=== PATIENT | female | born 2000 | race African-American/Black ===

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

== ENCOUNTER 2023-03-24 18:28 | Emergency (ER) | payer OTHER ==
--- OUTSIDE RECORDS SUMMARY | 2023-03-24 18:36 | XMS REPORT | Continuity of Care Document ---
:2000 Author Organization [facility] t Address [address] [place] [address] [address] [place] [address] Care Team Providers Name Role Phone Tono Lyles [place] Primary Care Physician CHARLINE BERNARDO Attending Clinician Unavailable MYESHA PIERRE Attending Clinician Unavailable TRIMYESHA MCCAIN Attending Clinician Unavailable 2, [facility] Attending Clinician Unavailable Doctor Unassigned, Gypsy Attending Clinician Unavailable Therese Smith MD Attending Clinician [phone] THERESE SMITH Attending Clinician Unavailable Pob, [facility] Main Attending Clinician Unavailable SHEA MILLAN Attending Clinician Unavailable Shea Millan MD Attending Clinician Kina Salmon Attending Clinician Unavailable CARLOS MANUEL TRIPLETT Attending Clinician Unavailable Ramón Terry PA-C Attending Clinician RAMÓN TERRY Attending Clinician Unavailable WING TUCKER Attending Clinician Unavailable CINDY ALVES III Attending Clinician Unavailable Only, Ang Db Test Attending Clinician Unavailable Jemima Murphy Attending Clinician JEMIMA RODRIGUEZ Attending Clinician Unavailable Charline Bernardo MD Attending Clinician Reggie Tiwari Attending Clinician REGGIE MANZANO Attending Clinician Unavailable Only, Vtc Test Attending Clinician Unavailable Joseph Boyd MD Attending Clinician JOSEPH BOYD Attending Clinician Unavailable Nurse, [facility] Attending Clinician Unavailable CHARLINE BERNARDO Admitting Clinician Unavailable Charline Bernardo MD Admitting Clinician Payers Payer Name Policy Type Policy Number Effective Date Expiration Date Eduardo haskins [facility] [id number] 2017 MEDICAID 00:00:00 Problems Condition Condition Condition Status Onset Resolution Last Treating Co mments Source Name Details Category Date Date Treatment Clinician Date Intertrigo Intertrigo Disease Active U nivers 6-22 ity of 00:: [place] [facility] Branch Menorrhagi Menorrhagi Disease Active 2021-06 U nivers a with a with 2-10 [place] Nexplanon Nexplanon Disease Active 2021-06 Uni vers insertion insertion 2-10 ity of 00:: [place] [facility] Branch BMI BMI Disease Active Univers 40.0-44.9, 40.0-44.9, 8-09 it y of adult adult 00:00: [place] [facility] Obesity Obesity Disease Active 2020-06 Univers (BMI (BMI 2-29 ity of 30-39.9) 30-39.9) 00:00: [place] [facility] Branch Macromasti Macromasti Disease Active Overview : Univers a a 7-29 Formattin ity of 00:00: g of this [place] note Medical might be Branch different from the original. Added automatic ally from request for surgery [id number] Nexplanon Nexplanon Disease Active Uni vers in place in place 3-09 ity of 00:00: [place] [address] Medical Branch Allergies, Adverse Reactions, Alerts Allergy Allergy Status Severity Reaction(s) Onset Inactive Treating Comm ents Source Name Type Date Date Clinician NO KNOWN Drug Active Univers ALLERGIE Class ity of S [facility] NO KNOWN Allergy Active [facility] Social History Social Habit Start Date Stop Date Quantity Comments Source Sexual orientation [facility]iver [facility] [place] [facility] [place] History SDOH University o f Alcohol Std Drinks [facility] History [facility] University o f Alcohol Binge [facility] al Branch Exposure to 2022-08-05 2022-08-15 Not sure [facility] SARS-CoV-2 (event) 00:00:00 07:23:00 [facility] Tobacco use and 2022-06-25 2022-06-25 Smokeless SHELBI Sanchez kes exposure 00:00:00 00:00:00 tobacco non-user [facility] Alcohol intake 2022-06-25 2022-06-25 Current drinker [facility] (finding) Alcohol Comment 2022-06-25 2022-06-25 socially SHELBI Sanchez kes 00:00:00 00:00:00 [facility] History of Social 2022-06-05 2022-06-05 Univers ity of function 00:00:00 00:00:00 [facility] History SDOH 2018-11-12 2018-11-12 1 [place] o f Alcohol Frequency 00:00:00 00:00:00 [facility] Sex Assigned At 2000 2002 SHELBI Oh 00:00:00 00:00:00 [facility] Smoking Status Start Date Stop Date Source Never smoked tobacco [facility] Medications Ordered Filled Start Stop Current Ordering Indication Dosage Frequency Signature Comments Components Source Medication Medication Date Date Medication? Clinician (SIG) Name Name nystatin Yes [id number] Apply to [facility] 100,000 6-22 area(s) 2 ity of unit/gram 00:00: (two) [place] powder 00 times Medical daily. Branch norethindro Yes [id number] 1{tbl} Take 1 Univers ne (ORTHO 6-22 tablet by ity o f MICRONOR) 00:00: [place] 0[place] 00 the Medical tablet morning. Branch nystatin Yes [id number] Apply to [facility] 100,000 6-22 area(s) 2 ity of unit/gram 00:00: (two) [place] powder 00 times Medical daily. Branch norethindro Yes [id number] 1{tbl} Take 1 Univers ne (ORTHO 6-22 tablet by ity o f MICRONOR) 00:00: [place] 0.[place] mg 00 the Medical tablet morning. Branch nystatin Yes [id number] Apply to [employer] 100,000 6-22 area(s) 2 ity of unit/gram 00:00: (two) [place] powder 00 times Medical daily. [place] norethindro Yes [id number] 1{tbl} Take 1 Univers ne (ORTHO 6-22 tablet by ity o f MICRONOR) 00:00: [place] 0.[place] mg 00 the Medical tablet morning. [place] etonogestre 2022- No [id number] 68mg Univers L 08-15 ity of (NEXPLANON) 14:45: 13:59 [place] implant 68 00 :00 Medical mg [place] etonogestre 2022- No [id number] 68mg 68 mg, Univers L 08-15 Subdermal, ity of (NEXPLANON) 14:45: 13:59 [place] :[place] dose, On Medic al mg Tue [place] 08/15/22 at 0945, Routine
Use approved by: [employer] etonogestre 2022- No [id number] 68mg Univers L 08-15 ity of (NEXPLANON) 14:45: 13:59 [place] implant 68 00 :00 Medical mg [place] etonogestre 2022- No [id number] 68mg 68 mg, Univers L 08-15 Subdermal, ity of (NEXPLANON) 14:45: 13:59 [place] :[place] dose, On Medic al mg Tue [place] 08/15/22 at 0945, Routine
Use approved by: [employer] etonogestre 2022- No [id number] 68mg Univers L 08-15 ity of (NEXPLANON) 14:45: 13:59 [place] implant 68 00 :00 Medical mg [place] etonogestre 2022- No [id number] 68mg 68 mg, Univers L 08-15 Subdermal, ity of (NEXPLANON) 14:45: 13:59 [place] 00 :[place] dose, On Medic al mg Tue [place] 08/15/22 at 0945, Routine
Use approved by: [employer] hydrOXYzine 2023-0 Yes 10mg Take 1 Univ ers 10 mg 3-14 tablet by ity of tablet 08:42: mouth. [address] Branch hydrOXYzine 2023-0 Yes 10mg Take 1 Univ ers 10 mg 3-14 tablet by ity of tablet 08:42: mouth. [address] hydrOXYzine 2023-0 Yes 10mg Take 1 Univ ers 10 mg 3-14 tablet by ity of tablet 08:42: mouth. [address] Branch hydrOXYzine 2023-0 Yes 10mg Take 1 Univ ers 10 mg 3-14 tablet by ity of tablet 08:42: mouth. [address] hydrOXYzine 2023-0 Yes 10mg Take 1 Univ ers 10 mg 3-14 tablet by ity of tablet 08:42: mouth. [address] hydrOXYzine 2023-0 Yes 10mg Take 1 Univ ers 10 mg 3-14 tablet by ity of tablet 08:42: mouth. [address] hydrOXYzine 2023-0 Yes 10mg Take 1 Univ ers 10 mg 3-14 tablet by ity of tablet 08:42: mouth. [address] hydrOXYzine 2023-0 Yes 10mg Take 1 Univ ers 10 mg 3-14 tablet by ity of tablet 08:42: mouth. [address] hydrOXYzine 2023-0 Yes 10mg Take 1 Univ ers 10 mg 3-14 tablet by ity of tablet 08:42: mouth. [address] hydrOXYzine 2023-0 Yes 10mg Take 1 Univ ers 10 mg 3-14 tablet by ity of tablet 08:42: mouth. [address] hydrOXYzine 2023-0 Yes 10mg Take 1 Univ ers 10 mg 3-14 tablet by ity of tablet 08:42: mouth. [address] hydrOXYzine 2023-0 Yes 10mg Take 1 Univ ers 10 mg 3-14 tablet by ity of tablet 08:42: mouth. [address] Branch omeprazole 2023-0 Yes 20mg Take 1 Unive rs 20 mg 3-14 capsule by ity of capsule 08:24: mouth in [place] [address] the Medical morning. Branch omeprazole 2023-0 Yes 20mg Take 1 Unive rs 20 mg 3-14 capsule by ity of capsule 08:24: mouth in [place] [address] the Medical morning. Branch omeprazole 2023-0 Yes 20mg Take 1 Unive rs 20 mg 3-14 capsule by ity of capsule 08:24: mouth in [place] [address] the Medical morning. Branch omeprazole 2023-0 Yes 20mg Take 1 Unive rs 20 mg 3-14 capsule by ity of capsule 08:24: mouth in [place] [address] the Medical morning. Branch omeprazole 2023-0 Yes 20mg Take 1 Unive rs 20 mg 3-14 capsule by ity of capsule 08:24: mouth in [place] [address] the Medical morning. Branch omeprazole 2023-0 Yes 20mg Take 1 Unive rs 20 mg 3-14 capsule by ity of capsule 08:24: mouth in [place] [address] the Medical morning. Branch omeprazole 2023-0 Yes 20mg Take 1 Unive rs 20 mg 3-14 capsule by ity of capsule 08:24: mouth in [place] [address] the Medical morning. Branch omeprazole 2023-0 Yes 20mg Take 1 Unive rs 20 mg 3-14 capsule by ity of capsule 08:24: mouth in [place] [address] the Medical morning. Branch omeprazole 2023-0 Yes 20mg Take 1 Unive rs 20 mg 3-14 capsule by ity of capsule 08:24: mouth in [place] [address] the Medical morning. Branch omeprazole 2023-0 Yes 20mg Take 1 Unive rs 20 mg 3-14 capsule by ity of capsule 08:24: mouth in [place] [address] the Medical morning. Branch omeprazole 2023-0 Yes 20mg Take 1 Unive rs 20 mg 3-14 capsule by ity of capsule 08:24: mouth in [place] [address] the Medical morning. Branch omeprazole 2023-0 Yes 20mg Take 1 Unive rs 20 mg 3-14 capsule by ity of capsule 08:24: mouth in [place] [address] the Medical morning. Branch omeprazole 2023-0 Yes 20mg Take 1 Unive rs 20 mg 3-14 capsule by ity of capsule 08:24: mouth in [place] [address] the Medical morning. Branch omeprazole 2023-0 Yes 20mg Take 1 Unive rs 20 mg 3-14 capsule by ity of capsule 08:24: mouth in [place] [address] the Medical morning. Branch omeprazole 2023-0 Yes 20mg Take 1 Unive rs 20 mg 3-14 capsule by ity of capsule 08:24: mouth in [place] [address] the Medical morning. Branch omeprazole 2023-0 Yes 20mg Take 1 Unive rs 20 mg 3-14 capsule by ity of capsule 08:24: mouth in [place] 31 the Medical morning. [place] omeprazole 2022-0 Yes 20mg Take 1 Unive rs 20 mg 3-14 capsule by ity of capsule 08:24: mouth in [place] 31 the Medical morning. [place] norethindro 0 Yes [id number] 1{tbl} Take 1 Univers ne (ORTHO 3-14 tablet by ity o f MICRONOR) 00:00: [place] 0[place] mg 00 the Medical tablet morning. Branch norethindro 0 Yes [id number] 1{tbl} Take 1 Univers ne (ORTHO 3-14 tablet by ity o f MICRONOR) 00:00: [place] 0.[place] mg 00 the Medical tablet morning. Branch norethindro Yes [id number] 1{tbl} Take 1 Univers ne (ORTHO 3-14 tablet by ity o f MICRONOR) 00:00: [place] 0.[place] mg 00 the Medical tablet morning. Branch norethindro Yes [id number] 1{tbl} Take 1 Univers ne (ORTHO 3-14 tablet by ity o f MICRONOR) 00:00: [place] 0.[place] mg 00 the Medical tablet morning. Branch norethindro Yes [id number] 1{tbl} Take 1 Univers ne (ORTHO 3-14 tablet by ity o f MICRONOR) 00:00: [place] 0.[place] mg 00 the Medical tablet morning. Branch norethindro Yes [id number] 1{tbl} Take 1 Univers ne (ORTHO 3-14 tablet by ity o f MICRONOR) 00:00: [place] 0.[place] mg 00 the Medical tablet morning. Branch norethindro 2022- No [id number] 1{tbl} Take 1 Univers ne (ORTHO 3-14 06-22 tablet by ity of MICRONOR) 00:00: 00:00 mouth in [place] 0.35 mg 00 :00 the Medical tablet morning. Branch norethindro 2022- No [id number] 1{tbl} Take 1 Univers ne (ORTHO 3-14 06-22 tablet by ity of MICRONOR) 00:00: 00:00 mouth [place] 0.35 mg 00 :00 the Medical tablet morning. Branch hydrOXYzine Yes 10mg Take [address] (ATARAX) 10 06-25 by mouth [facility] MG tablet 11:05: every 6 Medic al 46 (six) Center hours as needed for Anxiety. ondansetron 2022- No 4mg Take [address] [facility] [facility] (ZOFRAN-ODT 06-25 tablet (4 Judith kes ) 4 MG 00:00: 23:59 mg total) Medic al disintegrat 00 :00 by mouth Cent er ing tablet every 8 (eight) hours as needed for Nausea for up to 2 days. metroNIDAZO 2022- No [id number] 500mg Take 1 Univers LE 500 mg 06-06 tablet by ity of tablet 00:00: 05:59 mouth [place] 00 :00 every 12 Medical (twelve) Branch hours for 7 days. metroNIDAZO No [id number] 500mg Take 1 Univers LE 500 mg 06-06 tablet by ity of tablet 00:00: 05:59 mouth [place] 00 :00 every 12 Medical (twelve) Branch hours for 7 days. omeprazole 2021-06 Yes 20mg Take 20 mg U nivers 20 mg 2-09 by mouth ity of capsule 14:41: daily. [address] omeprazole 2021-06 Yes 20mg Take 20 mg U nivers 20 mg 2-09 by mouth ity of capsule 14:41: daily. [address] omeprazole 2021-06 Yes 20mg Take 20 mg U nivers 20 mg 2-09 by mouth ity of capsule 14:41: daily. [address] omeprazole 2021-06 Yes 20mg Take 20 mg U nivers 20 mg 2-09 by mouth ity of capsule 14:41: daily. [address] omeprazole 2021-06 Yes 20mg Take 20 mg U nivers 20 mg 2-09 by mouth ity of capsule 14:41: daily. [address] omeprazole 2021-06 Yes 20mg Take 20 mg U nivers 20 mg 2-09 by mouth ity of capsule 14:41: daily. [address] omeprazole 2021-06 Yes 20mg Take 20 mg U nivers 20 mg 2-09 by mouth ity of capsule 14:41: daily. [address] Branch norethindro 2021-06 Yes [id number] 1{tbl} Take 1 Univers ne (ORTHO 2-09 tablet by ity o f MICRONOR) 00:00: [place] 0.[place] mg 00 the Medical tablet morning. Branch norethindro 2021-06 Yes [id number] 1{tbl} Take 1 Univers ne (ORTHO 2-09 tablet by ity o f MICRONOR) 00:00: [place] 0.[place] mg 00 the Medical tablet morning. Branch norethindro 2021-06 Yes [id number] 1{tbl} Take 1 Univers ne (ORTHO 2-09 tablet by ity o f MICRONOR) 00:00: mouth [place] 0.[place] mg 00 the Medical tablet morning. Branch norethindro 2021-06 Yes [id number] 1{tbl} Take 1 Univers ne (ORTHO 2-09 tablet by ity o f MICRONOR) 00:00: [place] 0.[place] mg 00 the Medical tablet morning. Branch norethindro 2021-06 Yes [id number] 1{tbl} Take 1 Univers ne (ORTHO 2-09 tablet by ity o f MICRONOR) 00:00: mouth [place] 0.35 mg 00 the Medical tablet morning. Branch norethindro 2021-06 Yes [id number] 1{tbl} Take 1 Univers ne (ORTHO 2-09 tablet by ity o f MICRONOR) 00:00: mouth [place] 0.35 mg 00 the Medical tablet morning. Branch norethindro 2021-06 Yes [id number] 1{tbl} Take 1 Univers ne (ORTHO 2-09 tablet by ity o f MICRONOR) 00:00: mouth [place] 0.35 mg 00 the Medical tablet morning. Branch norethindro 2021-06 Yes [id number] 1{tbl} Take 1 Univers ne (ORTHO 2-09 tablet by ity o f MICRONOR) 00:00: mouth [place] 0.35 mg 00 the Medical tablet morning. Branch norethindro 2021-06 Yes [id number] 1{tbl} Take 1 Univers ne (ORTHO 2-09 tablet by ity o f MICRONOR) 00:00: [place] 0.[place] mg 00 the Medical tablet morning. Branch norethindro 2021-06- No [id number] 1{tbl} Take 1 Univers ne (ORTHO 2-09 03-14 tablet by ity of MICRONOR) 00:00: 00:00 mouth in [place] 0.35 mg 00 :00 the Medical tablet morning. Branch norethindro 2021-06 Yes TAKE 1 Univ ers ne 5 mg 2-08 TABLET BY ity of tablet 00:00: MOUTH [place] 00 THREE Medical TIMES Branch DAILY FOR 10 DAYS norethindro 2021-06 Yes TAKE 1 Univ ers ne 5 mg 2-08 TABLET BY ity of tablet 00:00: MOUTH THREE Medical TIMES Branch DAILY FOR 10 DAYS norethindro 2021-06 Yes TAKE 1 Univ ers ne 5 mg 2-08 TABLET BY ity of tablet 00:00: MOUTH THREE Medical TIMES Branch DAILY FOR 10 DAYS norethindro 2021-06 Yes TAKE 1 Univ ers ne 5 mg 2-08 TABLET BY ity of tablet 00:00: MOUTH THREE Medical TIMES Branch DAILY FOR 10 DAYS norethindro 2021-06 Yes TAKE 1 Univ ers ne 5 mg 2-08 TABLET BY ity of tablet 00:00: MOUTH THREE Medical TIMES Branch DAILY FOR 10 DAYS norethindro 2021-06 Yes TAKE 1 Univ ers ne 5 mg 2-08 TABLET BY ity of tablet 00:00: MOUTH THREE Medical TIMES Branch DAILY FOR 10 DAYS norethindro 2021-06 Yes TAKE 1 Univ ers ne 5 mg 2-08 TABLET BY ity of tablet 00:00: MOUTH [place] THREE Medical TIMES Branch DAILY FOR 10 DAYS norethindro 2021-06 Yes TAKE 1 Univ ers ne 5 mg 2-08 TABLET BY ity of tablet 00:00: MOUTH [place] THREE Medical TIMES Branch DAILY FOR 10 DAYS norethindro 2021-06 Yes TAKE 1 Univ ers ne 5 mg 2-08 TABLET BY ity of tablet 00:00: MOUTH [place] 00 THREE Medical TIMES Branch DAILY FOR 10 DAYS norethindro 2021-06 Yes TAKE 1 Univ ers ne 5 mg 2-08 TABLET BY ity of tablet 00:00: MOUTH [place] 00 THREE Medical TIMES Branch DAILY FOR 10 DAYS norethindro 2021-06 Yes TAKE 1 Univ ers ne 5 mg 2-08 TABLET BY ity of tablet 00:00: MOUTH [place] THREE Medical TIMES Branch DAILY FOR 10 DAYS norethindro 2021-06 Yes TAKE 1 Univ ers ne 5 mg 2-08 TABLET BY ity of tablet 00:00: MOUTH [place] THREE Medical TIMES Branch DAILY FOR 10 DAYS norethindro 2021-06 Yes TAKE 1 Univ ers ne 5 mg 2-08 TABLET BY ity of tablet 00:00: MOUTH [place] THREE Medical TIMES Branch DAILY FOR 10 DAYS norethindro 2021-06 Yes TAKE 1 Univ ers ne 5 mg 2-08 TABLET BY ity of tablet 00:00: MOUTH [place] [facility] Medical TIMES Branch DAILY FOR 10 DAYS norethindro 2021-06 Yes TAKE 1 Univ ers ne 5 mg 2-08 TABLET BY ity of tablet 00:00: MOUTH [address] Medical TIMES [place] DAILY FOR 10 DAYS sertraline 2021-06 Yes 50mg QD Take [address] (ZOLOFT) 50 1-11 by mouth [facility] MG tablet 00:00: daily. Medica [address] SERTraline 2021-06 Yes 50mg Take 1 Unive rs 50 mg 1-11 tablet by ity of tablet 00:00: mouth. [address] SERTraline 2021-06 Yes 50mg Take 1 Unive rs 50 mg 1-11 tablet by ity of tablet 00:00: mouth. [address] SERTraline 2021-06 Yes 50mg Take 1 Unive rs 50 mg 1-11 tablet by ity of tablet 00:00: mouth. [place] [facility] SERTraline 2021-06 Yes 50mg Take 1 Unive rs 50 mg 1-11 tablet by ity of tablet 00:00: mouth. [place] [facility] SERTraline 2021-06 Yes 50mg Take 1 Unive rs 50 mg 1-11 tablet by ity of tablet 00:00: mouth. [address] SERTraline 2021-06 Yes 50mg Take 1 Unive rs 50 mg 1-11 tablet by ity of tablet 00:00: mouth. [address] SERTraline 2021-06 Yes 50mg Take 1 Unive rs 50 mg 1-11 tablet by ity of tablet 00:00: mouth. [place] 00 Medical Branch SERTraline 2021-06 Yes 50mg Take 1 Unive rs 50 mg 1-11 tablet by ity of tablet 00:00: mouth. Medical Branch SERTraline 2021-06 Yes 50mg Take 1 Unive rs 50 mg 1-11 tablet by ity of tablet 00:00: mouth. Medical Branch SERTraline 2021-06 Yes 50mg Take 1 Unive rs 50 mg 1-11 tablet by ity of tablet 00:00: mouth. Medical Branch SERTraline 2021-06 Yes 50mg Take 1 Unive rs 50 mg 1-11 tablet by ity of tablet 00:00: mouth. [place] [facility] SERTraline 2021-06 Yes 50mg Take 1 Unive rs 50 mg 1-11 tablet by ity of tablet 00:00: mouth. [place] [facility] metroNIDAZO 0 Yes [id number] 500mg Take 1 Univers LE 500 mg 8-10 tablet by ity o f tablet 00:00: mouth [place] 00 every 12 Medical (twelve) Branch hours. metroNIDAZO 0 Yes [id number] 500mg Take 1 Univers LE 500 mg 8-10 tablet by ity o f tablet 00:00: mouth [place] 00 every 12 Medical (twelve) Branch hours. metroNIDAZO 2021-0 Yes [id number] 500mg Take 1 Univers LE 500 mg 8-10 tablet by ity o f tablet 00:00: mouth [place] 00 every 12 Medical (twelve) Branch hours. metroNIDAZO 2021-0 Yes [id number] 500mg Take 1 Univers LE 500 mg 8-10 tablet by ity o f tablet 00:00: mouth [place] 00 every 12 Medical (twelve) Branch hours. metroNIDAZO 2021-0 Yes [id number] 500mg Take 1 Univers LE 500 mg 8-10 tablet by ity o f tablet 00:00: mouth [place] 00 every 12 Medical (twelve) Branch hours. metroNIDAZO 2021-0 Yes [id number] 500mg Take 1 Univers LE 500 mg 8-10 tablet by ity o f tablet 00:00: mouth [place] 00 every 12 Medical (twelve) Branch hours. metroNIDAZO 2021-0 Yes [id number] 500mg Take 1 Univers LE 500 mg 8-10 tablet by ity o f tablet 00:00: mouth [place] 00 every 12 Medical (twelve) Branch hours. metroNIDAZO 2021-0 Yes [id number] 500mg Take 1 Univers LE 500 mg 8-10 tablet by ity o f tablet 00:00: mouth [place] 00 every 12 Medical (twelve) Branch hours. metroNIDAZO 2021-0 Yes [id number] 500mg Take 1 Univers LE 500 mg 8-10 tablet by ity o f tablet 00:00: mouth [place] 00 every 12 Medical (twelve) Branch hours. metroNIDAZO 2021-0 Yes [id number] 500mg Take 1 Univers LE 500 mg 8-10 tablet by ity o f tablet 00:00: mouth [place] 00 every 12 Medical (twelve) Branch hours. metroNIDAZO 2021-0 Yes [id number] 500mg Take 1 Univers LE 500 mg 8-10 tablet by ity o f tablet 00:00: mouth [place] 00 every 12 Medical (twelve) Branch hours. metroNIDAZO 2021-0 Yes [id number] 500mg Take 1 Univers LE 500 mg 8-10 tablet by ity o f tablet 00:00: mouth [place] 00 every 12 Medical (twelve) Branch hours. metroNIDAZO 2021-0 Yes [id number] 500mg Take 1 Univers LE 500 mg 8-10 tablet by ity o f tablet 00:00: mouth [place] 00 every 12 Medical (twelve) Branch hours. metroNIDAZO 2021-0 Yes [id number] 500mg Take 1 Univers LE 500 mg 8-10 tablet by ity o f tablet 00:00: mouth [place] 00 every 12 Medical (twelve) Branch hours. metroNIDAZO 2021-0 Yes [id number] 500mg Take 1 Univers LE 500 mg 8-10 tablet by ity o f tablet 00:00: mouth [place] 00 every 12 Medical (twelve) Branch hours. metroNIDAZO 2021-0 Yes [id number] 500mg Take 1 Univers LE 500 mg 8-10 tablet by ity o f tablet 00:00: mouth [place] 00 every 12 Medical (twelve) Branch hours. metroNIDAZO 2-0 Yes [id number] 500mg Take 1 Univers LE 500 mg 8-10 tablet by ity o f tablet 00:00: mouth [place] 00 every 12 Medical (twelve) Branch hours. metroNIDAZO 2-0 Yes [id number] 500mg Take 1 Univers LE 500 mg 8-10 tablet by ity o f tablet 00:00: mouth [place] 00 every 12 Medical (twelve) Branch hours. metroNIDAZO 2022-0 Yes [id number] 500mg Take 1 Univers LE 500 mg 8-10 tablet by ity o f tablet 00:00: mouth [place] 00 every 12 Medical (twelve) Branch hours. metroNIDAZO 2022-0 Yes [id number] 500mg Take 1 Univers LE 500 mg 8-10 tablet by ity o f tablet 00:00: mouth [place] 00 every 12 Medical (twelve) Branch hours. metroNIDAZO 2022-0 Yes [id number] 500mg Take 1 Univers LE 500 mg 8-10 tablet by ity o f tablet 00:00: mouth [place] 00 every 12 Medical (twelve) Branch hours. metroNIDAZO 2022-0 Yes [id number] 500mg Take 1 Univers LE 500 mg 8-10 tablet by ity o f tablet 00:00: mouth [place] 00 every 12 Medical (twelve) Branch hours. metroNIDAZO 2022-0 Yes [id number] 500mg Take 1 Univers LE 500 mg 8-10 tablet by ity o f tablet 00:00: mouth [place] 00 every 12 Medical (twelve) Branch hours. omeprazole 2022-0 Yes 20mg Take 20 mg U nivers 20 mg 8-09 by mouth ity of capsule 11:04: daily. [address] omeprazole 2022-0 Yes 20mg Take 20 mg U nivers 20 mg 8-09 by mouth ity of capsule 11:04: daily. [address] omeprazole 2022-0 Yes 20mg Take 20 mg U nivers 20 mg 8-09 by mouth ity of capsule 11:04: daily. [address] Branch nystatin 2022-0 Yes [id number] Apply to U nivers 100,000 8-09 area(s) 2 ity of unit/gram 00:00: (two) [place] powder 00 times Medical daily. Branch nystatin 2022-0 Yes [id number] Apply to U nivers 100,000 8-09 area(s) 2 ity of unit/gram 00:00: (two) [place] powder 00 times Medical daily. Branch nystatin 2022-0 Yes [id number] Apply to U nivers 100,000 8-09 area(s) 2 ity of unit/gram 00:00: (two) [place] powder 00 times Medical daily. Branch nystatin 2022-0 Yes [id number] Apply to U nivers 100,000 8-09 area(s) 2 ity of unit/gram 00:00: (two) [place] powder 00 times Medical daily. Branch nystatin 2022-0 Yes [id number] Apply to U nivers 100,000 8-09 area(s) 2 ity of unit/gram 00:00: (two) [place] powder 00 times Medical daily. Branch nystatin 2022-0 Yes [id number] Apply to U nivers 100,000 8-09 area(s) 2 ity of unit/gram 00:00: (two) [place] powder 00 times Medical daily. Branch nystatin 2022-0 Yes [id number] Apply to U nivers 100,000 8-09 area(s) 2 ity of unit/gram 00:00: (two) [place] powder 00 times Medical daily. Branch nystatin 2022-0 Yes [id number] Apply to U nivers 100,000 8-09 area(s) 2 ity of unit/gram 00:00: (two) [place] powder 00 times Medical daily. Branch nystatin 2022-0 Yes [id number] Apply to U nivers 100,000 8-09 area(s) 2 ity of unit/gram 00:00: (two) [place] powder 00 times Medical daily. Branch nystatin 2022-0 Yes [id number] Apply to U nivers 100,000 8-09 area(s) 2 ity of unit/gram 00:00: (two) [place] powder 00 times Medical daily. Branch nystatin 2022-0 Yes [id number] Apply to U nivers 100,000 8-09 area(s) 2 ity of unit/gram 00:00: (two) [place] powder 00 times Medical daily. Branch nystatin 2022-0 Yes [id number] Apply to U nivers 100,000 8-09 area(s) 2 ity of unit/gram 00:00: (two) [place] powder 00 times Medical daily. Branch nystatin 2022-0 Yes [id number] Apply to U nivers 100,000 8-09 area(s) 2 ity of unit/gram 00:00: (two) [place] powder 00 times Medical daily. Branch nystatin 2022-0 Yes [id number] Apply to U nivers 100,000 8-09 area(s) 2 ity of unit/gram 00:00: (two) [place] powder 00 times Medical daily. Branch nystatin 2022-0 Yes [id number] Apply to U nivers 100,000 8-09 area(s) 2 ity of unit/gram 00:00: (two) [place] powder 00 times Medical daily. Branch nystatin 2022-0 Yes [id number] Apply to U nivers 100,000 8-09 area(s) 2 ity of unit/gram 00:00: (two) [place] powder 00 times Medical daily. Branch nystatin 2022-0 Yes [id number] Apply to U nivers 100,000 8-09 area(s) 2 ity of unit/gram 00:00: (two) [place] powder 00 times Medical daily. Branch nystatin 2021-0 Yes [id number] Apply to U nivers 100,000 8-09 area(s) 2 ity of unit/gram 00:00: (two) [place] powder 00 times Medical daily. Branch nystatin 2021-0 2023- No [id number] Apply to Univers 100,000 8-09 06-22 area(s) 2 ity of unit/gram 00:00: 00:00 (two) [place] powder 00 :00 times Medical daily. Branch nystatin 2021-0 2023- No [id number] Apply to Univers 100,000 8-09 06-22 area(s) 2 ity of unit/gram 00:00: 00:00 (two) [place] powder 00 :00 times Medical daily. Branch nystatin 2021-0 2022- No [id number] Apply to Univers 100,000 6-14 08-09 area(s) 2 ity of unit/gram 00:00: 00:00 (two) [place] powder 00 :00 times Medical daily. Branch SERTraline 2020-06 Yes Univers 50 mg 2-01 ity of tablet 00:00: Medical Branch hydrOXYzine 2020-06 Yes Univer s 25 mg 2-01 ity of tablet 00:00: Medical Branch SERTraline 2020-06 Yes Univers 50 mg 2-01 ity of tablet 00:00: [facility] Branch hydrOXYzine 2020-06 Yes Univer s 25 mg 2-01 ity of tablet 00:00: Medical Branch SERTraline 2020-06 Yes Univers 50 mg 2-01 ity of tablet 00:00: [place] [facility] hydrOXYzine 2020-06 Yes Univer s 25 mg 2-01 ity of tablet 00:00: [place] [facility] Branch SERTraline 2020-06 Yes Univers 50 mg 2-01 ity of tablet 00:00: [address] hydrOXYzine 2020-06 Yes Univer s 25 mg 2-01 ity of tablet 00:00: [place] [facility] Branch SERTraline 2020-06 Yes Univers 50 mg 2-01 ity of tablet 00:00: [place] [facility] hydrOXYzine 2020-06 Yes Univer s 25 mg 2-01 ity of tablet 00:00: [address] SERTraline 2020-06 Yes Univers 50 mg 2-01 ity of tablet 00:00: [address] hydrOXYzine 2020-06 Yes Univer s 25 mg 2-01 ity of tablet 00:00: [address] SERTraline 2020-06 Yes Univers 50 mg 2-01 ity of tablet 00:00: [address] hydrOXYzine 2020-06 Yes Univer s 25 mg 2-01 ity of tablet 00:00: [address] SERTraline 2020-06 Yes Univers 50 mg 2-01 ity of tablet 00:00: [address] hydrOXYzine 2020-06 Yes Univer s 25 mg 2-01 ity of tablet 00:00: [address] SERTraline 2020-06 Yes Univers 50 mg 2-01 ity of tablet 00:00: [address] hydrOXYzine 2020-06 Yes Univer s 25 mg 2-01 ity of tablet 00:00: [address] SERTraline 2020-06 Yes Univers 50 mg 2-01 ity of tablet 00:00: [address] hydrOXYzine 2020-06 Yes Univer s 25 mg 2-01 ity of tablet 00:00: [address] SERTraline 2020-06 Yes Univers 50 mg 2-01 ity of tablet 00:00: [address] hydrOXYzine 2020-06 Yes Univer s 25 mg 2-01 ity of tablet 00:00: [address] SERTraline 2020-06 Yes Univers 50 mg 2-01 ity of tablet 00:00: [address] hydrOXYzine 2020-06 Yes Univer s 25 mg 2-01 ity of tablet 00:00: [place] [facility] SERTraline 2020-06 Yes Univers 50 mg 2-01 ity of tablet 00:00: [place] [facility] hydrOXYzine 2020-06 Yes Univer s 25 mg 2-01 ity of tablet 00:00: [address] SERTraline 2020-06 Yes Univers 50 mg 2-01 ity of tablet 00:00: [place] [facility] hydrOXYzine 2020-06 Yes Univer s 25 mg 2-01 ity of tablet 00:00: [address] SERTraline 2020-06 Yes Univers 50 mg 2-01 ity of tablet 00:00: [address] hydrOXYzine 2020-06 Yes Univer s 25 mg 2-01 ity of tablet 00:00: [address] SERTraline 2020-06 Yes Univers 50 mg 2-01 ity of tablet 00:00: [address] hydrOXYzine 2020-06 Yes Univer s 25 mg 2-01 ity of tablet 00:00: [address] SERTraline 2020-06 Yes Univers 50 mg 2-01 ity of tablet 00:00: [address] hydrOXYzine 2020-06 Yes Univer s 25 mg 2-01 ity of tablet 00:00: [address] SERTraline 2020-06 Yes Univers 50 mg 2-01 ity of tablet 00:00: [address] hydrOXYzine 2020-06 Yes Univer s 25 mg 2-01 ity of tablet 00:00: [address] SERTraline 2020-06 Yes Univers 50 mg 2-01 ity of tablet 00:00: [address] hydrOXYzine 2020-06 Yes Univer s 25 mg 2-01 ity of tablet 00:00: [address] SERTraline 2020-06 Yes Univers 50 mg 2-01 ity of tablet 00:00: [address] hydrOXYzine 2020-06 Yes Univer s 25 mg 2-01 ity of tablet 00:00: [address] SERTraline 2020-06 Yes Univers 50 mg 2-01 ity of tablet 00:00: [address] hydrOXYzine 2020-06 Yes Univer s 25 mg 2-01 ity of tablet 00:00: [address] SERTraline 2020-06 Yes Univers 50 mg 2-01 ity of tablet 00:00: [place] [facility] hydrOXYzine 2020-06 Yes Univer s 25 mg 2-01 ity of tablet 00:00: [address] SERTraline 2020-06 Yes Univers 50 mg 2-01 ity of tablet 00:00: [address] hydrOXYzine 2020-06 Yes Univer s 25 mg 2-01 ity of tablet 00:00: [place] [facility] SERTraline 2020-06 Yes Univers 50 mg 2-01 ity of tablet 00:00: [address] hydrOXYzine 2020-06 Yes Univer s 25 mg 2-01 ity of tablet 00:00: [address] SERTraline 2020-06 Yes Univers 50 mg 2-01 ity of tablet 00:00: [address] hydrOXYzine 2020-06 Yes Univer s 25 mg 2-01 ity of tablet 00:00: [address] Immunizations Ordered Immunization Filled Date Status Comments Sour ce Name Immunization Name Influenza Virus 2021-03-04 Completed Universit y of Vaccine 00:00:00 [facility] Influenza Virus 2021-03-04 Completed Universit y of Vaccine 00:00:00 [facility] Influenza Virus 2021-03-04 Completed Universit y of Vaccine 00:00:00 [facility] Influenza Virus 2021-03-04 Completed Universit y of Vaccine 00:00:00 [facility] Influenza Virus 2021-03-04 Completed Universit y of Vaccine 00:00:00 [facility] Influenza Virus 2021-03-04 Completed Universit y of Vaccine 00:00:00 [facility] Influenza Virus 2021-03-04 Completed Universit y of Vaccine 00:00:00 [facility] Influenza Virus 2021-03-04 Completed Universit y of Vaccine 00:00:00 [facility] Influenza Virus 2021-03-04 Completed Universit y of Vaccine 00:00:00 [facility] Influenza Virus 2021-03-04 Completed Universit y of Vaccine 00:00:00 [facility] Influenza Virus 2021-03-04 Completed Universit y of Vaccine 00:00:00 [facility] Influenza Virus 2021-03-04 Completed Universit y of Vaccine 00:00:00 [facility] Influenza Virus 2021-03-04 Completed Universit y of Vaccine 00:00:00 [facility] Influenza Virus 2021-03-04 Completed Universit y of Vaccine 00:00:00 [facility] Influenza Virus 2021-03-04 Completed Universit y of Vaccine 00:00:00 [facility] SARS-COV-2 COVID-19 2020-10-27 Completed Unive rsity of VACCINE - (MODERNA) 00:00:00 [facility] SARS-COV-2 COVID-19 2020-10-27 Completed Unive rsity of VACCINE - (MODERNA) 00:00:00 [facility] SARS-COV-2 COVID-19 2020-10-27 Completed Unive rsity of VACCINE - (MODERNA) 00:00:00 [facility] SARS-COV-2 COVID-19 2020-10-27 Completed Unive rsity of VACCINE - (MODERNA) 00:00:00 [facility] SARS-COV-2 COVID-19 2020-10-27 Completed Unive rsity of VACCINE - (MODERNA) 00:00:00 [facility] SARS-COV-2 COVID-19 2020-10-27 Completed Unive rsity of VACCINE - (MODERNA) 00:00:00 [facility] SARS-COV-2 COVID-19 2020-10-27 Completed Unive rsity of VACCINE - (MODERNA) 00:00:00 [facility] SARS-COV-2 COVID-19 2020-10-27 Completed Unive rsity of VACCINE - (MODERNA) 00:00:00 [facility] SARS-COV-2 COVID-19 2020-10-27 Completed Unive rsity of VACCINE - (MODERNA) 00:00:00 [facility] SARS-COV-2 COVID-19 2020-10-27 Completed Unive rsity of VACCINE - (MODERNA) 00:00:00 [facility] SARS-COV-2 COVID-19 2020-10-27 Completed Unive rsity of VACCINE - (MODERNA) 00:00:00 [facility] SARS-COV-2 COVID-19 2020-10-27 Completed Unive rsity of VACCINE - (MODERNA) 00:00:00 [place] [facility] SARS-COV-2 COVID-19 2020-10-27 Completed Unive rsity of VACCINE - (MODERNA) 00:00:00 [facility] SARS-COV-2 COVID-19 2020-10-27 Completed Unive rsity of VACCINE - (MODERNA) 00:00:00 [facility] SARS-COV-2 COVID-19 2020-10-27 Completed Unive rsity of VACCINE - (MODERNA) 00:00:00 [facility] SARS-COV-2 COVID-19 2020-09-29 Completed Unive rsity of VACCINE - (MODERNA) 00:00:00 [facility] SARS-COV-2 COVID-19 2020-09-29 Completed Unive rsity of VACCINE - (MODERNA) 00:00:00 [facility] SARS-COV-2 COVID-19 2020-09-29 Completed Unive rsity of VACCINE - (MODERNA) 00:00:00 [facility] SARS-COV-2 COVID-19 2020-09-29 Completed Unive rsity of VACCINE - (MODERNA) 00:00:00 [facility] SARS-COV-2 COVID-19 2020-09-29 Completed Unive rsity of VACCINE - (MODERNA) 00:00:00 [facility] SARS-COV-2 COVID-19 2020-09-29 Completed Unive rsity of VACCINE - (MODERNA) 00:00:00 [facility] SARS-COV-2 COVID-19 2020-09-29 Completed Unive rsity of VACCINE - (MODERNA) 00:00:00 [facility] SARS-COV-2 COVID-19 2020-09-29 Completed Unive rsity of VACCINE - (MODERNA) 00:00:00 [facility] SARS-COV-2 COVID-19 2020-09-29 Completed Unive rsity of VACCINE - (MODERNA) 00:00:00 [facility] SARS-COV-2 COVID-19 2020-09-29 Completed Unive rsity of VACCINE - (MODERNA) 00:00:00 [facility] SARS-COV-2 COVID-19 2020-09-29 Completed Unive rsity of VACCINE - (MODERNA) 00:00:00 [facility] SARS-COV-2 COVID-19 2020-09-29 Completed Unive rsity of VACCINE - (MODERNA) 00:00:00 [facility] SARS-COV-2 COVID-19 2020-09-29 Completed Unive rsity of VACCINE - (MODERNA) 00:00:00 [facility] SARS-COV-2 COVID-19 2020-09-29 Completed Unive rsity of VACCINE - (MODERNA) 00:00:00 [facility] SARS-COV-2 COVID-19 2020-09-29 Completed Unive rsity of VACCINE - (MODERNA) 00:00:00 [facility] HPV 2015-01-18 Completed University of 00:00:00 [facility] Meningococcal 2015-01-18 Completed University of Polysaccharide 00:00:00 [place] [facility] (groups A, C, Y and Branc h W-135) conjugate vaccine (MCV4P) TDAP 2015-01-18 Completed University of 00:00:00 [facility] HPV 2015-01-18 Completed University of 00:00:00 [facility] Meningococcal 2015-01-18 Completed University of Polysaccharide 00:00:00 [place] [facility] (groups A, C, Y and Branc h W-135) conjugate vaccine (MCV4P) TDAP 2015-01-18 Completed University of 00:00:00 [facility] HPV 2015-01-18 Completed University of 00:00:00 [facility] Meningococcal 2015-01-18 Completed University of Polysaccharide 00:00:00 [place] [facility] (groups A, C, Y and Branc h W-135) conjugate vaccine (MCV4P) TDAP 2015-01-18 Completed University of 00:00:00 [facility] HPV 2015-01-18 Completed University of 00:00:00 [facility] Meningococcal 2015-01-18 Completed University of Polysaccharide 00:00:00 [place] [facility] (groups A, C, Y and Branc h W-135) conjugate vaccine (MCV4P) TDAP 2015-01-18 Completed University of 00:00:00 [facility] HPV 2015-01-18 Completed University of 00:00:00 [facility] Meningococcal 2015-01-18 Completed University of Polysaccharide 00:00:00 [place] [facility] (groups A, C, Y and Branc h W-135) conjugate vaccine (MCV4P) TDAP 2015-01-18 Completed University of 00:00:00 [facility] HPV 2015-01-18 Completed University of 00:00:00 [facility] Meningococcal 2015-01-18 Completed University of Polysaccharide 00:00:00 [place] [facility] (groups A, C, Y and Branc h W-135) conjugate vaccine (MCV4P) TDAP 2015-01-18 Completed University of 00:00:00 [facility] HPV 2015-01-18 Completed University of 00:00:00 [facility] Meningococcal 2015-01-18 Completed University of Polysaccharide 00:00:00 [place] [facility] (groups A, C, Y and Branc h W-135) conjugate vaccine (MCV4P) TDAP 2015-01-18 Completed University of 00:00:00 [facility] HPV 2015-01-18 Completed University of 00:00:00 [facility] Meningococcal 2015-01-18 Completed University of Polysaccharide 00:00:00 [place] [facility] (groups A, C, Y and Branc h W-135) conjugate vaccine (MCV4P) TDAP 2015-01-18 Completed University of 00:00:00 [facility] HPV 2015-01-18 Completed University of 00:00:00 [facility] Meningococcal 2015-01-18 Completed University of Polysaccharide 00:00:00 [place] [facility] (groups A, C, Y and Branc h W-135) conjugate vaccine (MCV4P) TDAP 2015-01-18 Completed University of 00:00:00 [facility] HPV 2015-01-18 Completed University of 00:00:00 [facility] Meningococcal 2015-01-18 Completed University of Polysaccharide 00:00:00 [place] [facility] (groups A, C, Y and Branc h W-135) conjugate vaccine (MCV4P) TDAP 2015-01-18 Completed University of 00:00:00 [facility] HPV 2015-01-18 Completed University of 00:00:00 [facility] Meningococcal 2015-01-18 Completed University of Polysaccharide 00:00:00 [place] [facility] (groups A, C, Y and Branc h W-135) conjugate vaccine (MCV4P) TDAP 2015-01-18 Completed University of 00:00:00 [facility] HPV 2015-01-18 Completed University of 00:00:00 [facility] Meningococcal 2015-01-18 Completed University of Polysaccharide 00:00:00 [place] [facility] (groups A, C, Y and Branc h W-135) conjugate vaccine (MCV4P) TDAP 2015-01-18 Completed University of 00:00:00 [place] [facility] HPV 2015-01-18 Completed University of 00:00:00 [place] [facility] Meningococcal 2015-01-18 Completed University of Polysaccharide 00:00:00 [place] [facility] (groups A, C, Y and Branc h W-135) conjugate vaccine (MCV4P) TDAP 2015-01-18 Completed University of 00:00:00 [place] [facility] HPV 2015-01-18 Completed University of 00:00:00 [place] [facility] Meningococcal 2015-01-18 Completed University of Polysaccharide 00:00:00 [place] [facility] (groups A, C, Y and Branc h W-135) conjugate vaccine (MCV4P) TDAP 2015-01-18 Completed University of 00:00:00 [place] [facility] HPV 2015-01-18 Completed University of 00:00:00 [facility] Meningococcal 2015-01-18 Completed University of Polysaccharide 00:00:00 [place] [facility] (groups A, C, Y and Branc h W-135) conjugate vaccine (MCV4P) TDAP 2015-01-18 Completed University of 00:00:00 [place] [facility] HPV 2012-11-06 Completed University of 00:00:00 [place] [facility] HPV 2012-11-06 Completed University of 00:00:00 [place] [facility] HPV 2012-11-06 Completed University of 00:00:00 [place] [facility] HPV 2012-11-06 Completed University of 00:00:00 [place] [facility] HPV 2012-11-06 Completed University of 00:00:00 [place] [facility] HPV 2012-11-06 Completed University of 00:00:00 [place] [facility] HPV 2012-11-06 Completed University of 00:00:00 [place] [facility] HPV 2012-11-06 Completed University of 00:00:00 [place] [facility] HPV 2012-11-06 Completed University of 00:00:00 [place] [facility] HPV 2012-11-06 Completed University of 00:00:00 [place] [facility] HPV 2012-11-06 Completed University of 00:00:00 [place] [facility] HPV 2012-11-06 Completed University of 00:00:00 [place] [facility] HPV 2012-11-06 Completed University of 00:00:00 [place] [facility] HPV 2012-11-06 Completed University of 00:00:00 [place] [facility] HPV 2012-11-06 Completed University of 00:00:00 [place] [facility] HEPATITIS A 2006-08-29 Completed University of 00:00:00 [facility] HEPATITIS A 2006-08-29 Completed University of 00:00:00 [facility] HEPATITIS A 2006-08-29 Completed University of 00:00:00 [facility] HEPATITIS A 2006-08-29 Completed University of 00:00:00 [facility] HEPATITIS A 2006-08-29 Completed University of 00:00:00 [facility] HEPATITIS A 2006-08-29 Completed University of 00:00:00 [facility] HEPATITIS A 2006-08-29 Completed University of 00:00:00 [facility] HEPATITIS A 2006-08-29 Completed University of 00:00:00 [facility] HEPATITIS A 2006-08-29 Completed University of 00:00:00 [facility] HEPATITIS A 2006-08-29 Completed University of 00:00:00 [facility] HEPATITIS A 2006-08-29 Completed University of 00:00:00 [facility] HEPATITIS A 2006-08-29 Completed University of 00:00:00 [facility] HEPATITIS A 2006-08-29 Completed University of 00:00:00 [facility] HEPATITIS A 2006-08-29 Completed University of 00:00:00 [facility] HEPATITIS A 2006-08-29 Completed University of 00:00:00 [facility] DTaP, Unspecified 2006-07-05 Completed Univers ity of Formulation 00:00:00 [facility] Hib-HbOC 2006-07-05 Completed University of 00:00:00 [facility] Proquad 2006-07-05 Completed University of (MMR/VARICELLA) 00:00:00 [facility] IPV 2006-07-05 Completed University of 00:00:00 [facility] DTaP, Unspecified 2006-07-05 Completed Univers ity of Formulation 00:00:00 [facility] Hib-HbOC 2006-07-05 Completed University of 00:00:00 [facility] Proquad 2006-07-05 Completed University of (MMR/VARICELLA) 00:00:00 [facility] IPV 2006-07-05 Completed University of 00:00:00 [facility] DTaP, Unspecified 2006-07-05 Completed Univers ity of Formulation 00:00:00 [facility] Hib-HbOC 2006-07-05 Completed University of 00:00:00 [facility] Proquad 2006-07-05 Completed University of (MMR/VARICELLA) 00:00:00 [facility] IPV 2006-07-05 Completed University of 00:00:00 [facility] DTaP, Unspecified 2006-07-05 Completed Univers ity of Formulation 00:00:00 [facility] Hib-HbOC 2006-07-05 Completed University of 00:00:00 [facility] Proquad 2006-07-05 Completed University of (MMR/VARICELLA) 00:00:00 [facility] IPV 2006-07-05 Completed University of 00:00:00 [facility] DTaP, Unspecified 2006-07-05 Completed Univers ity of Formulation 00:00:00 [facility] Hib-HbOC 2006-07-05 Completed University of 00:00:00 [facility] Proquad 2006-07-05 Completed University of (MMR/VARICELLA) 00:00:00 [facility] IPV 2006-07-05 Completed University of 00:00:00 [facility] DTaP, Unspecified 2006-07-05 Completed Univers ity of Formulation 00:00:00 [facility] Hib-HbOC 2006-07-05 Completed University of 00:00:00 [facility] Proquad 2006-07-05 Completed University of (MMR/VARICELLA) 00:00:00 [facility] IPV 2006-07-05 Completed University of 00:00:00 [facility] DTaP, Unspecified 2006-07-05 Completed Univers ity of Formulation 00:00:00 [facility] Hib-HbOC 2006-07-05 Completed University of 00:00:00 [facility] Proquad 2006-07-05 Completed University of (MMR/VARICELLA) 00:00:00 [facility] IPV 2006-07-05 Completed University of 00:00:00 [facility] DTaP, Unspecified 2006-07-05 Completed Univers ity of Formulation 00:00:00 [facility] Hib-HbOC 2006-07-05 Completed University of 00:00:00 [facility] Proquad 2006-07-05 Completed University of (MMR/VARICELLA) 00:00:00 [facility] IPV 2006-07-05 Completed University of 00:00:00 [facility] DTaP, Unspecified 2006-07-05 Completed Univers ity of Formulation 00:00:00 [facility] Hib-HbOC 2006-07-05 Completed University of 00:00:00 [facility] Proquad 2006-07-05 Completed University of (MMR/VARICELLA) 00:00:00 [facility] IPV 2006-07-05 Completed University of 00:00:00 [facility] DTaP, Unspecified 2006-07-05 Completed Univers ity of Formulation 00:00:00 [facility] Hib-HbOC 2006-07-05 Completed University of 00:00:00 [facility] Proquad 2006-07-05 Completed University of (MMR/VARICELLA) 00:00:00 [facility] IPV 2006-07-05 Completed University of 00:00:00 [facility] DTaP, Unspecified 2006-07-05 Completed Univers ity of Formulation 00:00:00 [facility] Hib-HbOC 2006-07-05 Completed University of 00:00:00 [facility] Proquad 2006-07-05 Completed University of (MMR/VARICELLA) 00:00:00 [facility] IPV 2006-07-05 Completed University of 00:00:00 [facility] DTaP, Unspecified 2006-07-05 Completed Univers ity of Formulation 00:00:00 [facility] Hib-HbOC 2006-07-05 Completed University of 00:00:00 [facility] Proquad 2006-07-05 Completed University of (MMR/VARICELLA) 00:00:00 [facility] IPV 2006-07-05 Completed University of 00:00:00 [facility] DTaP, Unspecified 2006-07-05 Completed Univers ity of Formulation 00:00:00 [facility] Hib-HbOC 2006-07-05 Completed University of 00:00:00 [facility] Proquad 2006-07-05 Completed University of (MMR/VARICELLA) 00:00:00 [facility] IPV 2006-07-05 Completed University of 00:00:00 [facility] DTaP, Unspecified 2006-07-05 Completed Univers ity of Formulation 00:00:00 [facility] Hib-HbOC 2006-07-05 Completed University of 00:00:00 [facility] Proquad 2006-07-05 Completed University of (MMR/VARICELLA) 00:00:00 [facility] IPV 2006-07-05 Completed University of 00:00:00 [facility] DTaP, Unspecified 2006-07-05 Completed Univers ity of Formulation 00:00:00 [facility] Hib-HbOC 2006-07-05 Completed University of 00:00:00 [facility] Proquad 2006-07-05 Completed University of (MMR/VARICELLA) 00:00:00 [facility] IPV 2006-07-05 Completed University of 00:00:00 [facility] HEPATITIS A 2005-10-24 Completed University of 00:00:00 [facility] HEPATITIS A 2005-10-24 Completed University of 00:00:00 [facility] HEPATITIS A 2005-10-24 Completed University of 00:00:00 [facility] HEPATITIS A 2005-10-24 Completed [facility] 00:00:00 [facility] HEPATITIS A 2005-10-24 Completed [facility] 00:00:00 [facility] HEPATITIS A 2005-10-24 Completed [facility] 00:00:00 [facility] HEPATITIS A 2005-10-24 Completed [facility] 00:00:00 [facility] HEPATITIS A 2005-10-24 Completed [facility] 00:00:00 [facility] HEPATITIS A 2005-10-24 Completed [facility] 00:00:00 [facility] HEPATITIS A 2005-10-24 Completed [facility] 00:00:00 [facility] HEPATITIS A 2005-10-24 Completed [facility] 00:00:00 [facility] HEPATITIS A 2005-10-24 Completed [facility] of 00:00:00 [facility] HEPATITIS A 2005-10-24 Completed [facility] 00:00:00 [facility] HEPATITIS A 2005-10-24 Completed [facility] 00:00:00 [facility] HEPATITIS A 2005-10-24 Completed [facility] of 00:00:00 [facility] HEPATITIS A 2005-01-19 Completed [facility] of 00:00:00 [facility] Pneumococcal 7 2005-01-19 Completed University of Conjugate, PCV7 00:00:00 [facility] (Prevnar7) [place] HEPATITIS A 2005-01-19 Completed [facility] 00:00:00 [facility] Pneumococcal 7 2005-01-19 Completed University of Conjugate, PCV7 00:00:00 [facility] (Prevnar7) [place] HEPATITIS A 2005-01-19 Completed [facility] 00:00:00 [facility] Pneumococcal 7 2005-01-19 Completed [facility] of Conjugate, PCV7 00:00:00 [facility] (Prevnar7) [place] HEPATITIS A 2005-01-19 Completed [facility] 00:00:00 [facility] Pneumococcal 7 2005-01-19 Completed [facility] Conjugate, PCV7 00:00:00 [place] [facility] HEPATITIS A 2005-01-19 Completed [facility] 00:00:00 [facility] Pneumococcal 7 2005-01-19 Completed [facility] of Conjugate, PCV7 00:00:00 [place] [facility] (Prevnar7) [facility] HEPATITIS A 2005-01-19 Completed [facility] 00:00:00 [facility] Pneumococcal 7 2005-01-19 Completed [facility] of Conjugate, PCV7 00:00:00 [place] [facility] (Prevnar7) [facility] HEPATITIS A 2005-01-19 Completed [facility] 00:00:00 [facility] Pneumococcal 7 2005-01-19 Completed [facility] of Conjugate, PCV7 00:00:00 [place] [facility] (Prevnar7) [facility] HEPATITIS A 2005-01-19 Completed [facility] 00:00:00 [facility] Pneumococcal 7 2005-01-19 Completed [facility] of Conjugate, PCV7 00:00:00 [place] [facility] (Prevnar7) [facility] HEPATITIS A 2005-01-19 Completed [facility] 00:00:00 [facility] Pneumococcal 7 2005-01-19 Completed [facility] of Conjugate, PCV7 00:00:00 [place] [facility] (Prevnar7) [facility] HEPATITIS A 2005-01-19 Completed [facility] 00:00:00 [facility] Pneumococcal 7 2005-01-19 Completed [facility] of Conjugate, PCV7 00:00:00 [place] [facility] (Prevnar7) [facility] HEPATITIS A 2005-01-19 Completed [facility] 00:00:00 [facility] Pneumococcal 7 2005-01-19 Completed [facility] of Conjugate, PCV7 00:00:00 [place] [facility] (Prevnar7) [facility] HEPATITIS A 2005-01-19 Completed [facility] 00:00:00 [facility] Pneumococcal 7 2005-01-19 Completed [facility] Conjugate, PCV7 00:00:00 [place] [facility] (Prevnar7) [facility] HEPATITIS A 2005-01-19 Completed [facility] 00:00:00 [facility] Pneumococcal 7 2005-01-19 Completed [facility] Conjugate, PCV7 00:00:00 [place] [facility] (Prevnar7) [facility] HEPATITIS A 2005-01-19 Completed [facility] 00:00:00 [facility] Pneumococcal 7 2005-01-19 Completed [facility] Conjugate, PCV7 00:00:00 [place] [facility] (Prevnar7) [facility] HEPATITIS A 2005-01-19 Completed [facility] 00:00:00 [facility] Pneumococcal 7 2005-01-19 Completed [facility] of Conjugate, PCV7 00:00:00 [facility] ical (Prevnar7) Branch DTaP, Unspecified 2004-02-17 Completed Univers ity of Formulation 00:00:00 [facility] DTaP, Unspecified 2004-02-17 Completed [facility] ity of Formulation 00:00:00 [facility] DTaP, Unspecified 2004-02-17 Completed [facility] ity of Formulation 00:00:00 [facility] DTaP, Unspecified 2004-02-17 Completed [facility] ity of Formulation 00:00:00 [facility] DTaP, Unspecified 2004-02-17 Completed [facility] ity of Formulation 00:00:00 [facility] DTaP, Unspecified 2004-02-17 Completed [facility] ity of Formulation 00:00:00 [facility] DTaP, Unspecified 2004-02-17 Completed [facility] ity of Formulation 00:00:00 [facility] DTaP, Unspecified 2004-02-17 Completed [facility] ity of Formulation 00:00:00 [facility] DTaP, Unspecified 2004-02-17 Completed [facility] ity of Formulation 00:00:00 [facility] DTaP, Unspecified 2004-02-17 Completed [facility] ity of Formulation 00:00:00 [facility] DTaP, Unspecified 2004-02-17 Completed [facility] ity of Formulation 00:00:00 [facility] DTaP, Unspecified 2004-02-17 Completed [facility] ity of Formulation 00:00:00 [facility] DTaP, Unspecified 2004-02-17 Completed [facility] ity of Formulation 00:00:00 [facility] DTaP, Unspecified 2004-02-17 Completed [facility] ity of Formulation 00:00:00 [facility] DTaP, Unspecified 2004-02-17 Completed [facility] ity of Formulation 00:00:00 [facility] MMR 2003-06-24 Completed [facility] 00:00:00 [facility] Pneumococcal 7 2003-06-24 Completed [facility] of Conjugate, PCV7 00:00:00 [facility] ical (Prevnar7) Branch Varicella 2003-06-24 Completed University of (varivax)(chicken 00:00:00 [place] [facility] pox) [facility] MMR 2003-06-24 Completed [facility] 00:00:00 [facility] Pneumococcal 7 2003-06-24 Completed [facility] of Conjugate, PCV7 00:00:00 [place] [facility] (Prevnar7) [facility] Varicella 2003-06-24 Completed [facility] (varivax)(chicken 00:00:00 [place] [facility] pox) [facility] MMR 2003-06-24 Completed [facility] 00:00:00 [facility] Pneumococcal 7 2003-06-24 Completed [facility] of Conjugate, PCV7 00:00:00 [place] [facility] (Prevnar7) [facility] Varicella 2003-06-24 Completed [facility] (varivax)(chicken 00:00:00 [place] [facility] pox) [facility] MMR 2003-06-24 Completed [facility] 00:00:00 [facility] Pneumococcal 7 2003-06-24 Completed [facility] of Conjugate, PCV7 00:00:00 [place] [facility] (Prevnar7) [facility] Varicella 2003-06-24 Completed [facility] (varivax)(chicken 00:00:00 [place] [facility] pox) [facility] MMR 2003-06-24 Completed [facility] 00:00:00 [facility] Pneumococcal 7 2003-06-24 Completed [facility] of Conjugate, PCV7 00:00:00 [place] [facility] (Prevnar7) [facility] Varicella 2003-06-24 Completed [facility] (varivax)(chicken 00:00:00 [place] [facility] pox) [facility] MMR 2003-06-24 Completed [facility] 00:00:00 [facility] Pneumococcal 7 2003-06-24 Completed [facility] of Conjugate, PCV7 00:00:00 [place] [facility] (Prevnar7) [facility] Varicella 2003-06-24 Completed [facility] (varivax)(chicken 00:00:00 [place] [facility] pox) [facility] MMR 2003-06-24 Completed [facility] 00:00:00 [facility] Pneumococcal 7 2003-06-24 Completed [facility] of Conjugate, PCV7 00:00:00 [place] [facility] (Prevnar7) [facility] Varicella 2003-06-24 Completed [facility] (varivax)(chicken 00:00:00 [place] [facility] pox) [facility] MMR 2003-06-24 Completed [facility] 00:00:00 [facility] Pneumococcal 7 2003-06-24 Completed [facility] of Conjugate, PCV7 00:00:00 [place] [facility] (Prevnar7) [facility] Varicella 2003-06-24 Completed [facility] (varivax)(chicken 00:00:00 [place] [facility] pox) [facility] 2003-06-24 Completed [facility] 00:00:00 [facility] Pneumococcal 7 2003-06-24 Completed [facility] of Conjugate, PCV7 00:00:00 [place] [facility] (Prevnar7) [facility] Varicella 2003-06-24 Completed [facility] (varivax)(chicken 00:00:00 [place] [facility] pox) [facility] 2003-06-24 Completed [facility] 00:00:00 [facility] Pneumococcal 7 2003-06-24 Completed [facility] of Conjugate, PCV7 00:00:00 [place] [facility] (Prevnar7) [facility] Varicella 2003-06-24 Completed [facility] (varivax)(chicken 00:00:00 [place] [facility] pox) [facility] 2003-06-24 Completed [facility] 00:00:00 [facility] Pneumococcal 7 2003-06-24 Completed [facility] of Conjugate, PCV7 00:00:00 [place] [facility] (Prevnar7) [facility] Varicella 2003-06-24 Completed [facility] (varivax)(chicken 00:00:00 [place] [facility] pox) [facility] 2003-06-24 Completed [facility] 00:00:00 [facility] Pneumococcal 7 2003-06-24 Completed [facility] of Conjugate, PCV7 00:00:00 [place] [facility] (Prevnar7) [facility] Varicella 2003-06-24 Completed [facility] (varivax)(chicken 00:00:00 [place] [facility] pox[facility] 2003-06-24 Completed [facility] 00:00:00 [facility] Pneumococcal 7 2003-06-24 Completed [facility] of Conjugate, PCV7 00:00:00 [place] [facility] (Prevnar7) [facility] Varicella 2003-06-24 Completed [facility] (varivax)(chicken 00:00:00 [place] [facility] pox) [facility] 2003-06-24 Completed [facility] 00:00:00 [facility] Pneumococcal 7 2003-06-24 Completed [facility] of Conjugate, PCV7 00:00:00 [place] [facility] (Prevnar7) [facility] Varicella 2003-06-24 Completed [facility] (varivax)(chicken 00:00:00 [place] [facility] pox) [facility] 2003-06-24 Completed [facility] 00:00:00 [facility] Pneumococcal 7 2003-06-24 Completed [facility] of Conjugate, PCV7 00:00:00 [place] [facility] (Prevnar7) [facility] Varicella 2003-06-24 Completed [facility] of (varivax)(chicken 00:00:00 [place] [facility] pox) [facility] DTaP, Unspecified 2003-03-10 Completed Univers ity of Formulation 00:00:00 [facility] Hep B, Adol or Pedi 2003-03-10 Completed Unive rsity of Dosage 00:00:00 [facility] HIB 4 Dose Schedule 2003-03-10 Completed Unive rsity of 00:00:00 [facility] Pneumococcal 7 2003-03-10 Completed [facility] of Conjugate, PCV7 00:00:00 [place] [facility] (Prevnar7) [facility] IPV 2003-03-10 Completed [facility] of 00:00:00 [facility] DTaP, Unspecified 2003-03-10 Completed [facility] ity of Formulation 00:00:00 [facility] Hep B, Adol or Pedi 2003-03-10 Completed Unive rsity of Dosage 00:00:00 [facility] HIB 4 Dose Schedule 2003-03-10 Completed Unive rsity of 00:00:00 [facility] Pneumococcal 7 2003-03-10 Completed [facility] of Conjugate, PCV7 00:00:00 [place] [facility] (Prevnar7) [facility] IPV 2003-03-10 Completed [facility] 00:00:00 [facility] DTaP, Unspecified 2003-03-10 Completed [facility] ity of Formulation 00:00:00 [facility] Hep B, Adol or Pedi 2003-03-10 Completed Unive rsity of Dosage 00:00:00 [facility] HIB 4 Dose Schedule 2003-03-10 Completed Unive rsity of 00:00:00 [facility] Pneumococcal 7 2003-03-10 Completed [facility] of Conjugate, PCV7 00:00:00 [place] [facility] (Prevnar7) [facility] IPV 2003-03-10 Completed [facility] of 00:00:00 [facility] DTaP, Unspecified 2003-03-10 Completed Univers ity of Formulation 00:00:00 [facility] Hep B, Adol or Pedi 2003-03-10 Completed Unive rsity of Dosage 00:00:00 [facility] HIB 4 Dose Schedule 2003-03-10 Completed Unive rsity of 00:00:00 [facility] Pneumococcal 7 2003-03-10 Completed University of Conjugate, PCV7 00:00:00 [place] [facility] (Prevnar7) [facility] IPV 2003-03-10 Completed [facility] of 00:00:00 [facility] DTaP, Unspecified 2003-03-10 Completed Univers ity of Formulation 00:00:00 [facility] Hep B, Adol or Pedi 2003-03-10 Completed Unive rsity of Dosage 00:00:00 [facility] HIB 4 Dose Schedule 2003-03-10 Completed Unive rsity of 00:00:00 [facility] Pneumococcal 7 2003-03-10 Completed [facility] of Conjugate, PCV7 00:00:00 [place] [facility] (Prevnar7) [facility] IPV 2003-03-10 Completed [facility] of 00:00:00 [facility] DTaP, Unspecified 2003-03-10 Completed Univers ity of Formulation 00:00:00 [facility] Hep B, Adol or Pedi 2003-03-10 Completed Unive rsity of Dosage 00:00:00 [facility] HIB 4 Dose Schedule 2003-03-10 Completed Unive rsity of 00:00:00 [facility] Pneumococcal 7 2003-03-10 Completed [facility] of Conjugate, PCV7 00:00:00 [place] [facility] (Prevnar7) [facility] IPV 2003-03-10 Completed [facility] of 00:00:00 [facility] DTaP, Unspecified 2003-03-10 Completed [facility] ity of Formulation 00:00:00 [facility] Hep B, Adol or Pedi 2003-03-10 Completed Unive rsity of Dosage 00:00:00 [facility] HIB 4 Dose Schedule 2003-03-10 Completed Unive rsity of 00:00:00 [facility] Pneumococcal 7 2003-03-10 Completed [facility] of Conjugate, PCV7 00:00:00 [place] [facility] (Prevnar7) [facility] IPV 2003-03-10 Completed [facility] of 00:00:00 [facility] DTaP, Unspecified 2003-03-10 Completed Univers ity of Formulation 00:00:00 [facility] Hep B, Adol or Pedi 2003-03-10 Completed Unive rsity of Dosage 00:00:00 [facility] HIB 4 Dose Schedule 2003-03-10 Completed Unive rsity of 00:00:00 [facility] Pneumococcal 7 2003-03-10 Completed [facility] of Conjugate, PCV7 00:00:00 [place] [facility] (Prevnar7) [facility] IPV 2003-03-10 Completed [facility] of 00:00:00 [facility] DTaP, Unspecified 2003-03-10 Completed [facility] ity of Formulation 00:00:00 [facility] Hep B, Adol or Pedi 2003-03-10 Completed Unive rsity of Dosage 00:00:00 [facility] HIB 4 Dose Schedule 2003-03-10 Completed Unive rsity of 00:00:00 [facility] Pneumococcal 7 2003-03-10 Completed [facility] of Conjugate, PCV7 00:00:00 [place] [facility] (Prevnar7) [facility] IPV 2003-03-10 Completed [facility] 00:00:00 [facility] DTaP, Unspecified 2003-03-10 Completed Univers ity of Formulation 00:00:00 [facility] Hep B, Adol or Pedi 2003-03-10 Completed Unive rsity of Dosage 00:00:00 [facility] HIB 4 Dose Schedule 2003-03-10 Completed Unive rsity of 00:00:00 [facility] Pneumococcal 7 2003-03-10 Completed [facility] of Conjugate, PCV7 00:00:00 [place] [facility] (Prevnar7) [facility] IPV 2003-03-10 Completed [facility] of 00:00:00 [facility] DTaP, Unspecified 2003-03-10 Completed Univers ity of Formulation 00:00:00 [facility] Hep B, Adol or Pedi 2003-03-10 Completed Unive rsity of Dosage 00:00:00 [facility] HIB 4 Dose Schedule 2003-03-10 Completed Unive rsity of 00:00:00 [facility] Pneumococcal 7 2003-03-10 Completed [facility] of Conjugate, PCV7 00:00:00 [place] [facility] (Prevnar7) [facility] IPV 2003-03-10 Completed [facility] of 00:00:00 [facility] DTaP, Unspecified 2003-03-10 Completed Univers ity of Formulation 00:00:00 [facility] Hep B, Adol or Pedi 2003-03-10 Completed Unive rsity of Dosage 00:00:00 [facility] HIB 4 Dose Schedule 2003-03-10 Completed Unive rsity of 00:00:00 [facility] Pneumococcal 7 2003-03-10 Completed [facility] of Conjugate, PCV7 00:00:00 [place] [facility] (Prevnar7) [facility] IPV 2003-03-10 Completed [facility] of 00:00:00 [facility] DTaP, Unspecified 2003-03-10 Completed Univers ity of Formulation 00:00:00 [facility] Hep B, Adol or Pedi 2003-03-10 Completed Unive rsity of Dosage 00:00:00 [facility] HIB 4 Dose Schedule 2003-03-10 Completed Unive rsity of 00:00:00 [facility] Pneumococcal 7 2003-03-10 Completed [facility] of Conjugate, PCV7 00:00:00 [place] [facility] (Prevnar7) [facility] IPV 2003-03-10 Completed [facility] of 00:00:00 [facility] DTaP, Unspecified 2003-03-10 Completed Univers ity of Formulation 00:00:00 [facility] Hep B, Adol or Pedi 2003-03-10 Completed Unive rsity of Dosage 00:00:00 [facility] HIB 4 Dose Schedule 2003-03-10 Completed Unive rsity of 00:00:00 [facility] Pneumococcal 7 2003-03-10 Completed University of Conjugate, PCV7 00:00:00 [facility] ical (Prevnar7) Branch IPV 2003-03-10 Completed [facility] of 00:00:00 [facility] DTaP, Unspecified 2003-03-10 Completed Univers ity of Formulation 00:00:00 [facility] Hep B, Adol or Pedi 2003-03-10 Completed Unive rsity of Dosage 00:00:00 [facility] HIB 4 Dose Schedule 2003-03-10 Completed Unive rsity of 00:00:00 [facility] Pneumococcal 7 2003-03-10 Completed University of Conjugate, PCV7 00:00:00 [place] [facility] (Prevnar7) [facility] IPV 2003-03-10 Completed [facility] 00:00:00 [facility] DTaP, Unspecified 2002 Completed [facility] ity of Formulation 00:00:00 [facility] HIB 4 Dose Schedule 2002 Completed Unive rsity of 00:00:00 [facility] IPV 2002 Completed [facility] of 00:00:00 [facility] DTaP, Unspecified 2002 Completed [facility] ity of Formulation 00:00:00 [facility] HIB 4 Dose Schedule 2002 Completed Unive rsity of 00:00:00 [facility] IPV 2002 Completed [facility] 00:00:00 [facility] DTaP, Unspecified 2002 Completed [facility] ity of Formulation 00:00:00 [facility] HIB 4 Dose Schedule 2002 Completed Unive rsity of 00:00:00 [facility] IPV 2002 Completed [facility] 00:00:00 [facility] DTaP, Unspecified 2002 Completed Univers ity of Formulation 00:00:00 [facility] HIB 4 Dose Schedule 2002 Completed Unive rsity of 00:00:00 [facility] IPV 2002 Completed [facility] 00:00:00 [facility] DTaP, Unspecified 2002 Completed Univers ity of Formulation 00:00:00 [facility] HIB 4 Dose Schedule 2002 Completed Unive rsity of 00:00:00 [facility] IPV 2002 Completed [facility] 00:00:00 [facility] DTaP, Unspecified 2002 Completed Univers ity of Formulation 00:00:00 [facility] HIB 4 Dose Schedule 2002 Completed Unive rsity of 00:00:00 [facility] IPV 2002 Completed [facility] 00:00:00 [facility] DTaP, Unspecified 2002 Completed Univers ity of Formulation 00:00:00 [facility] HIB 4 Dose Schedule 2002 Completed Unive rsity of 00:00:00 [facility] IPV 2002 Completed [facility] 00:00:00 [facility] DTaP, Unspecified 2002 Completed Univers ity of Formulation 00:00:00 [facility] HIB 4 Dose Schedule 2002 Completed Unive rsity of 00:00:00 [facility] IPV 2002 Completed [facility] 00:00:00 [facility] DTaP, Unspecified 2002 Completed [facility] ity of Formulation 00:00:00 [facility] HIB 4 Dose Schedule 2002 Completed Unive rsity of 00:00:00 [facility] IPV 2002 Completed [facility] of 00:00:00 [facility] DTaP, Unspecified 2002 Completed [facility] ity of Formulation 00:00:00 [facility] HIB 4 Dose Schedule 2002 Completed Unive rsity of 00:00:00 [facility] IPV 2002 Completed [facility] 00:00:00 [facility] DTaP, Unspecified 2002 Completed [facility] ity of Formulation 00:00:00 [facility] HIB 4 Dose Schedule 2002 Completed Unive rsity of 00:00:00 [facility] IPV 2002 Completed [facility] 00:00:00 [facility] DTaP, Unspecified 2002 Completed [facility] ity of Formulation 00:00:00 [facility] HIB 4 Dose Schedule 2002 Completed Unive rsity of 00:00:00 [facility] IPV 2002 Completed [facility] 00:00:00 [facility] DTaP, Unspecified 2002 Completed [facility] ity of Formulation 00:00:00 [facility] HIB 4 Dose Schedule 2002 Completed Unive rsity of 00:00:00 [facility] IPV 2002 Completed [facility] 00:00:00 [facility] DTaP, Unspecified 2002 Completed [facility] ity of Formulation 00:00:00 [facility] HIB 4 Dose Schedule 2002 Completed Unive rsity of 00:00:00 [facility] IPV 2002 Completed [facility] 00:00:00 [facility] DTaP, Unspecified 2002 Completed [facility] ity of Formulation 00:00:00 [facility] HIB 4 Dose Schedule 2002 Completed Unive rsity of 00:00:00 [facility] IPV 2002 Completed [facility] 00:00:00 [facility] DTaP, Unspecified 2002 Completed [facility] it[facility] of Formulation 00:00:00 [facility] Hep B, Adol or Pedi 2002 Completed Unive rsity of Dosage 00:00:00 [facility] HIB 4 Dose Schedule 2002 Completed Unive rsity of 00:00:00 [facility] Pneumococcal 7 2002 Completed [facility] of Conjugate, PCV7 00:00:00 [place] [facility] (Prevnar7) [facility] IPV 2002 Completed [facility] 00:00:00 [facility] DTaP, Unspecified 2002 Completed [facility] it[facility] Formulation 00:00:00 [facility] Hep B, Adol or Pedi 2002 Completed Unive rsity of Dosage 00:00:00 [facility] HIB 4 Dose Schedule 2002 Completed Unive rsity of 00:00:00 [facility] Pneumococcal 7 2002 Completed [facility] of Conjugate, PCV7 00:00:00 [place] [facility] (Prevnar7) [facility] IPV 2002 Completed [facility] 00:00:00 [facility] DTaP, Unspecified 2002 Completed [facility] it[facility] Formulation 00:00:00 [facility] Hep B, Adol or Pedi 2002 Completed Unive rsity of Dosage 00:00:00 [facility] HIB 4 Dose Schedule 2002 Completed Unive rsity of 00:00:00 [facility] Pneumococcal 7 2002 Completed [facility] of Conjugate, PCV7 00:00:00 [place] [facility] (Prevnar7) [facility] IPV 2002 Completed [facility] 00:00:00 [facility] DTaP, Unspecified 2002 Completed [facility] it[facility] Formulation 00:00:00 [facility] Hep B, Adol or Pedi 2002 Completed Unive rsity of Dosage 00:00:00 [facility] HIB 4 Dose Schedule 2002 Completed Unive rsity of 00:00:00 [facility] Pneumococcal 7 2002 Completed [facility] of Conjugate, PCV7 00:00:00 [place] [facility] (Prevnar7) [facility] IPV 2002 Completed [facility] 00:00:00 [facility] DTaP, Unspecified 2002 Completed [facility] it[facility] Formulation 00:00:00 [facility] Hep B, Adol or Pedi 2002 Completed Unive rsity of Dosage 00:00:00 [facility] HIB 4 Dose Schedule 2002 Completed Unive rsity of 00:00:00 [facility] Pneumococcal 7 2002 Completed [facility] of Conjugate, PCV7 00:00:00 [place] [facility] (Prevnar7) Branch IPV 2002 Completed [facility] 00:00:00 [facility] DTaP, Unspecified 2002 Completed [facility] Formulation 00:00:00 [facility] Hep B, Adol or Pedi 2002 Completed Unive rsity of Dosage 00:00:00 [facility] HIB 4 Dose Schedule 2002 Completed Unive rsity of 00:00:00 [facility] Pneumococcal 7 2002 Completed University of Conjugate, PCV7 00:00:00 [place] [facility] (Prevnar7) Branch IPV 2002 Completed [facility] 00:00:00 [facility] DTaP, Unspecified 2002 Completed [facility] Formulation 00:00:00 [facility] Hep B, Adol or Pedi 2002 Completed [facility]ive [facility]ity of Dosage 00:00:00 [facility] HIB 4 Dose Schedule 2002 Completed Unive rsity of 00:00:00 [facility] Pneumococcal 7 2002 Completed [facility] of Conjugate, PCV7 00:00:00 [place] [facility] (Prevnar7) Branch IPV 2002 Completed [facility] 00:00:00 [facility] DTaP, Unspecified 2002 Completed [facility] Formulation 00:00:00 [facility] Hep B, Adol or Pedi 2002 Completed [facility]ive rsity of Dosage 00:00:00 [facility] HIB 4 Dose Schedule 2002 Completed Unive rsity of 00:00:00 [facility] Pneumococcal 7 2002 Completed [facility] of Conjugate, PCV7 00:00:00 [place] [facility] (Prevnar7) Branch IPV 2002 Completed [facility] 00:00:00 [facility] DTaP, Unspecified 2002 Completed [facility] Formulation 00:00:00 [facility] Hep B, Adol or Pedi 2002 Completed [facility]ive rsity of Dosage 00:00:00 [facility] HIB 4 Dose Schedule 2002 Completed [facility]ive rsity of 00:00:00 [facility] Pneumococcal 7 2002 Completed [facility] of Conjugate, PCV7 00:00:00 [place] [facility] (Prevnar7) Branch IPV 2002 Completed [facility] 00:00:00 [facility] DTaP, Unspecified 2002 Completed [facility] Formulation 00:00:00 [facility] Hep B, Adol or Pedi 2002 Completed [facility]ive rsity of Dosage 00:00:00 [facility] HIB 4 Dose Schedule 2002 Completed [facility]ive rsity of 00:00:00 [facility] Pneumococcal 7 2002 Completed [facility] of Conjugate, PCV7 00:00:00 [place] [facility] (Prevnar7) Branch IPV 2002 Completed [facility] 00:00:00 [facility] DTaP, Unspecified 2002 Completed [facility] Formulation 00:00:00 [facility] Hep B, Adol or Pedi 2002 Completed [facility]ive rsity of Dosage 00:00:00 [facility] HIB 4 Dose Schedule 2002 Completed [facility]ive rsity of 00:00:00 [facility] Pneumococcal 7 2002 Completed [facility] of Conjugate, PCV7 00:00:00 [place] [facility] (Prevnar7) [facility] IPV 2002 Completed [facility] 00:00:00 [facility] DTaP, Unspecified 2002 Completed [facility] ity of Formulation 00:00:00 [facility] Hep B, Adol or Pedi 2002 Completed [facility]ive rsity of Dosage 00:00:00 [facility] HIB 4 Dose Schedule 2002 Completed Unive rsity of 00:00:00 [facility] Pneumococcal 7 2002 Completed [facility] of Conjugate, PCV7 00:00:00 [place] [facility] (Prevnar7) Branch IPV 2002 Completed [facility] 00:00:00 [facility] DTaP, Unspecified 2002 Completed [facility] it[facility] Formulation 00:00:00 [facility] Hep B, Adol or Pedi 2002 Completed [facility]ive rsity of Dosage 00:00:00 [facility] HIB 4 Dose Schedule 2002 Completed [facility]ive rsity of 00:00:00 [facility] Pneumococcal 7 2002 Completed [facility] of Conjugate, PCV7 00:00:00 [place] [facility] (Prevnar7) Branch IPV 2002 Completed [facility] 00:00:00 [facility] DTaP, Unspecified 2002 Completed [facility] ity of Formulation 00:00:00 [facility] Hep B, Adol or Pedi 2002 Completed [facility]ive rsity of Dosage 00:00:00 [facility] HIB 4 Dose Schedule 2002 Completed Unive rsity of 00:00:00 [facility] Pneumococcal 7 2002 Completed [facility] of Conjugate, PCV7 00:00:00 [place] [facility] (Prevnar7) Branch IPV 2002 Completed [facility] 00:00:00 [place] [facility] DTaP, Unspecified 2002 Completed [facility] ity [facility] Formulation 00:00:00 [facility] Hep B, Adol or Pedi 2002 Completed [facility]ive rsity of Dosage 00:00:00 [facility] HIB 4 Dose Schedule 2002 Completed Unive rsity of 00:00:00 [facility] Pneumococcal 7 2002 Completed [facility] of Conjugate, PCV7 00:00:00 [place] [facility] (Prevnar7) Branch IPV 2002 Completed [facility] 00:00:00 [facility] Hep B, Adol or Pedi 2002 Completed Unive rsity of Dosage 00:00:00 [facility] Hep B, Adol or Pedi 2002 Completed [facility]ive rsity of Dosage 00:00:00 [facility] Hep B, Adol or Pedi 2002 Completed [facility]ive rsity of Dosage 00:00:00 [facility] Hep B, Adol or Pedi 2002 Completed Unive rsity of Dosage 00:00:00 [facility] Hep B, Adol or Pedi 2002 Completed Unive rsity of Dosage 00:00:00 [facility] Hep B, Adol or Pedi 2002 Completed Unive rsity of Dosage 00:00:00 [facility] Hep B, Adol or Pedi 2002 Completed [facility]ive rsity of Dosage 00:00:00 [facility] Hep B, Adol or Pedi 2002 Completed Unive rsity of Dosage 00:00:00 [facility] Hep B, Adol or Pedi 2002 Completed Unive rsity of Dosage 00:00:00 [facility] Hep B, Adol or Pedi 2002 Completed [facility]ive rsity of Dosage 00:00:00 [facility] Hep B, Adol or Pedi 2002 Completed [facility]ive rsity of Dosage 00:00:00 [facility] Hep B, Adol or Pedi 2002 Completed [facility]ive rsity of Dosage 00:00:00 [facility] Hep B, Adol or Pedi 2002 Completed [facility]ive rsity of Dosage 00:00:00 [facility] Hep B, Adol or Pedi 2002 Completed [facility]ive rsity of Dosage 00:00:00 [facility] Hep B, Adol or Pedi 2002 Completed Unive rsity of Dosage 00:00:00 [facility] HPV Unknown Completed [facility] Influenza Virus Unknown Completed Universit y of Vaccine [facility] Meningococcal Unknown Completed [facility] (groups A, C, Y and Branc h W-135) conjugate vaccine (MCV4P) MMR Unknown Completed [facility] Proquad Unknown Completed [facility] (MMR/VARICELLA) [facility] Pneumococcal 7 Unknown Completed [facility] Conjugate, PCV7 [facility] (Prevnar7) Branch Pneumococcal 7 Unknown Completed [facility] Conjugate, PCV7 [facility] (Prevnar7) Branch Pneumococcal 7 Unknown Completed [facility] Conjugate, PCV7 [facility] ical (Prevnar7) Branch Pneumococcal 7 Unknown Completed [facility] Conjugate, PCV7 [facility] ical (Prevnar7) Branch IPV Unknown Completed [facility] IPV Unknown Completed [facility] IPV Unknown Completed [facility] IPV Unknown Completed [facility] TDAP Unknown Completed [facility] Varicella Unknown Completed [facility] (varivax)(chicken [place] [facility] pox) Branch DTaP, Unspecified Unknown Completed [facility] ity of Formulation [facility] DTaP, Unspecified Unknown Completed [facility]y of Formulation [facility] DTaP, Unspecified Unknown Completed [facility] ity of Formulation [facility] DTaP, Unspecified Unknown Completed [facility] ity of Formulation [facility] DTaP, Unspecified Unknown Completed [facility] ity of Formulation [facility] SARS-COV-2 COVID-19 Unknown Completed Unive rsity of VACCINE - (MODERNA) [facility] SARS-COV-2 COVID-19 Unknown Completed Unive rsity of VACCINE - (MODERNA) [facility] HEPATITIS A Unknown Completed [facility] HEPATITIS A Unknown Completed [facility] HEPATITIS A Unknown Completed [facility] Hep B, Adol or Pedi Unknown Completed Unive rsity of Dosage [facility] Hep B, Adol or Pedi Unknown Completed Unive rsity of Dosage [facility] Hep B, Adol or Pedi Unknown Completed Unive rsity of Dosage [facility] Hib-HbOC Unknown Completed [facility] HIB 4 Dose Schedule Unknown [facility] [place] [facility] D[facility] [place] [facility] Dose [facility] [place] [facility] Unknown Completed [facility] HPV Unknown Completed [facility] Influenza Virus Unknown Completed Universit y of Vaccine [facility] Meningococcal Unknown Completed [facility] (groups A, C, Y and Branc h W-135) conjugate vaccine (MCV4P) MMR Unknown Completed [facility] Proquad Unknown Completed [facility] (MMR/VARICELLA) [facility] Pneumococcal 7 Unknown Completed [facility] Conjugate, PCV7 [facility] ical (Prevnar7) Branch Pneumococcal 7 Unknown Completed [facility] Conjugate, PCV7 [facility] ical (Prevnar7) Branch Pneumococcal 7 Unknown Completed [facility] Conjugate, PCV7 [facility] ica (Prevnar7) Branch Pneumococcal 7 Unknown Completed [facility] Conjugate, PCV7 [facility] (Prevnar7) Branch IPV Unknown Completed [facility] IPV Unknown Completed [facility] IPV Unknown Completed [facility] IPV Unknown Completed [facility] TDAP Unknown Completed [facility] Varicella Unknown Completed [facility] (varivax)(chicken [place] [facility] pox) Branch DTaP, Unspecified Unknown Completed [facility] it[facility] of Formulation [facility] DTaP, Unspecified Unknown Completed [facility] ity of Formulation [facility] DTaP, Unspecified Unknown Completed [facility] ity of Formulation [facility] DTaP, Unspecified Unknown Completed [facility] ity of Formulation [facility] DTaP, Unspecified Unknown Completed [facility] ity of Formulation [facility] SARS-COV-2 COVID-19 Unknown Completed Unive rsity of VACCINE - (MODERNA) [facility] SARS-COV-2 COVID-19 Unknown Completed Unive rsity of VACCINE - (MODERNA) [facility] HEPATITIS A Unknown Completed [facility] HEPATITIS A Unknown Completed [facility] HEPATITIS A Unknown Completed [facility] Hep B, Adol or Pedi Unknown Completed Unive rsity of Dosage [facility] Hep B, Adol or Pedi Unknown Completed Unive rsity of Dosage [facility] Hep B, Adol or Pedi Unknown Completed Unive rsity of Dosage [facility] Hib-HbOC Unknown Completed [facility] HIB 4 Dose Schedule Unknown [facility] [place] [facility] D[facility] [place] [facility] Dose Schedule [facility] [place] [facility] Unknown Completed [facility] HPV Unknown Completed [facility] Influenza Virus Unknown Completed [facility] of Vaccine [facility] Meningococcal Unknown Completed [facility] (groups A, C, Y and Branc h W-135) conjugate vaccine (MCV4P) MMR Unknown Completed [facility] Proquad Unknown Completed [facility] (MMR/VARICELLA) [facility] Pneumococcal 7 Unknown Completed [facility] Conjugate, PCV7 [facility] (Prevnar7) Branch Pneumococcal 7 Unknown Completed [facility] Conjugate, PCV7 [facility] ical (Prevnar7) Branch Pneumococcal 7 Unknown Completed [facility] Conjugate, PCV7 [facility] (Prevnar7) Branch Pneumococcal 7 Unknown Completed [facility] Conjugate, PCV7 [facility] (Prevnar7) Branch IPV Unknown Completed [facility] IPV Unknown Completed [facility] IPV Unknown Completed [facility] IPV Unknown Completed [facility] TDAP Unknown Completed [facility] Varicella Unknown Completed [facility] (varivax)(chicken [place] [facility] pox) Branch DTaP, Unspecified Unknown Completed [facility] ity of Formulation [facility] DTaP, Unspecified Unknown Completed [facility] ity of Formulation [facility] DTaP, Unspecified Unknown Completed [facility] ity of Formulation [facility] DTaP, Unspecified Unknown Completed [facility] ity of Formulation [facility] DTaP, Unspecified Unknown Completed [facility] ity of Formulation [facility] SARS-COV-2 COVID-19 Unknown Completed Unive rsity of VACCINE - (MODERNA) [facility] SARS-COV-2 COVID-19 Unknown Completed Unive rsity of VACCINE - (MODERNA) [facility] HEPATITIS A Unknown Completed [facility] HEPATITIS A Unknown Completed [facility] HEPATITIS A Unknown Completed [facility] Hep B, Adol or Pedi Unknown Completed Unive rsity of Dosage [facility] Hep B, Adol or Pedi Unknown Completed Unive rsity of Dosage [facility] Hep B, Adol or Pedi Unknown Completed Unive rsity of Dosage [facility] Hib-HbOC Unknown Completed [facility] HIB 4 Dose Schedule Unknown [facility] [place] [facility] Dose Schedule Unknown [facility] [place] [facility] 4 Dose Schedule Unknown [facility] [place] HPV Unknown Completed [facility] HPV Unknown Completed [facility] Influenza Virus Unknown Completed [facility] y of Vaccine [facility] Meningococcal Unknown Completed [facility] (groups A, C, Y and Branc h W-135) conjugate vaccine (MCV4P) MMR Unknown Completed [facility] Proquad Unknown Completed [facility] (MMR/VARICELLA) [facility] Pneumococcal 7 Unknown Completed [facility] Conjugate, PCV7 [facility] (Prevnar7) Branch Pneumococcal 7 Unknown Completed [facility] Conjugate, PCV7 [facility] (Prevnar7) Branch Pneumococcal 7 Unknown Completed [facility] Conjugate, PCV7 [facility] (Prevnar7) Branch Pneumococcal 7 Unknown Completed [facility] Conjugate, PCV7 [facility] (Prevnar7) Branch IPV Unknown Completed [facility] IPV Unknown Completed [facility] IPV Unknown Completed [facility] IPV Unknown Completed [facility] TDAP Unknown Completed [facility] Varicella Unknown Completed [facility] (varivax)(chicken [place] [facility] pox) Branch DTaP, Unspecified Unknown Completed [facility] ity of Formulation [facility] DTaP, Unspecified Unknown Completed [facility] ity of Formulation [facility] DTaP, Unspecified Unknown Completed [facility] ity of Formulation [facility] DTaP, Unspecified Unknown Completed [facility] ity of Formulation [facility] DTaP, Unspecified Unknown Completed [facility] ity of Formulation [facility] SARS-COV-2 COVID-19 Unknown Completed Unive rsity of VACCINE - (MODERNA) [facility] SARS-COV-2 COVID-19 Unknown Completed Unive rsity of VACCINE - (MODERNA) [facility] HEPATITIS A Unknown Completed [facility] HEPATITIS A Unknown Completed [facility] HEPATITIS A Unknown Completed [facility] Hep B, Adol or Pedi Unknown Completed Unive rsity of Dosage [facility] Hep B, Adol or Pedi Unknown Completed Unive rsity of Dosage [facility] Hep B, Adol or Pedi Unknown Completed Unive rsity of Dosage [facility] Hib-HbOC Unknown Completed [facility] HIB 4 Dose Schedule Unknown [facility] [place] [facility] Dose Schedule Unknown [facility] [place] [facility] 4 Dose Schedule Unknown [facility] [place] HPV Unknown Completed [facility] HPV Unknown Completed [facility] Influenza Virus Unknown Completed [facility] of Vaccine [facility] Meningococcal Unknown Completed [facility] Polysaccharide [facility]au (groups A, C, Y and Branc h W-135) conjugate vaccine (MCV4P) MMR Unknown Completed [facility] Proquad Unknown Completed University (MMR/VARICELLA) [facility] Pneumococcal 7 Unknown Completed University of Conjugate, PCV7 [facility] ical (Prevnar7) Branch Pneumococcal 7 Unknown Completed [place] of Conjugate, PCV7 [facility] ical (Prevnar7) Branch Pneumococcal 7 Unknown Completed University of Conjugate, PCV7 [facility] ical (Prevnar7) Branch Pneumococcal 7 Unknown Completed University Conjugate, PCV7 [facility] ical (Prevnar7) Branch IPV Unknown Completed [facility] IPV Unknown Completed [facility] IPV Unknown Completed [facility] IPV Unknown Completed [facility] TDAP Unknown Completed [facility] Varicella Unknown Completed [facility] (varivax)(chicken [place] [facility] pox) Branch DTaP, Unspecified Unknown Completed [facility] ity of Formulation [facility] DTaP, Unspecified Unknown Completed [facility] ity of Formulation [facility] DTaP, Unspecified Unknown Completed [facility] ity of Formulation [facility] DTaP, Unspecified Unknown Completed [facility] ity of Formulation [facility] DTaP, Unspecified Unknown Completed [facility] ity of Formulation [facility] HEPATITIS A Unknown Completed [facility] HEPATITIS A Unknown Completed [facility] HEPATITIS A Unknown Completed [facility] Hep B, Adol or Pedi Unknown Completed Unive rsity of [facility] Hep B, Adol or Pedi Unknown Completed Unive rsity of [facility] Hep B, Adol or Pedi Unknown Completed Unive rsity of Dosage [facility] Hib-HbOC Unknown Completed [facility] HIB 4 Dose Schedule Unknown [facility] [place] [facility] 4 Dose Schedule Unknown [facility] [place] HIB 4 Dose Schedule Unknown Completed Unive [facility] HPV Unknown Completed [facility] HPV Unknown Completed [facility] Meningococcal Unknown Completed [facility] Polysaccharide [facility]au (groups A, C, Y and Branc h W-135) conjugate vaccine (MCV4P) MMR Unknown Completed [facility] Proquad Unknown Completed University (MMR/VARICELLA) [facility] Pneumococcal 7 Unknown Completed [place] of Conjugate, PCV7 [facility] ical (Prevnar7) Branch Pneumococcal 7 Unknown Completed [facility] of Conjugate, PCV7 [facility] ical (Prevnar7) Branch Pneumococcal 7 Unknown Completed University Conjugate, PCV7 [place] [facility] (Prevnar7) Branch Pneumococcal 7 Unknown Completed [facility] Conjugate, PCV7 [place] [facility] (Prevnar7) Branch IPV Unknown Completed [facility] IPV Unknown Completed [facility] IPV Unknown Completed [facility] IPV Unknown Completed [facility] TDAP Unknown Completed [facility] Varicella Unknown Completed [facility] (varivax)(chicken [place] [facility] pox) Branch DTaP, Unspecified Unknown Completed [facility] ity of Formulation [facility] DTaP, Unspecified Unknown Completed [facility]y of Formulation [facility] DTaP, Unspecified Unknown Completed [facility]y of Formulation [facility] DTaP, Unspecified Unknown Completed [facility] ity of Formulation [facility] DTaP, Unspecified Unknown Completed [facility] ity of Formulation [facility] HEPATITIS A Unknown Completed [facility] HEPATITIS A Unknown Completed [facility] HEPATITIS A Unknown Completed [facility] Hep B, Adol or Pedi Unknown Completed Unive rsity of Dosage [facility] Hep B, Adol or Pedi Unknown Completed Unive rsity of Dosage [facility] Hep B, Adol or Pedi Unknown Completed Unive rsity of [facility] Hib-HbOC Unknown Completed [facility] HIB 4 Dose Schedule Unknown Completed Unive [facility] HIB 4 Dose Schedule Unknown Completed Unive [facility] HIB 4 Dose Schedule Unknown Completed Unive [facility] HPV Unknown Completed [facility] HPV Unknown Completed [facility] Meningococcal Unknown Completed [facility] Polysaccharide [facility] (groups A, C, Y and Branc h W-135) conjugate vaccine (MCV4P) MMR Unknown Completed [facility] Proquad Unknown Completed University (MMR/VARICELLA) [facility] Pneumococcal 7 Unknown Completed University of Conjugate, PCV7 [place] [facility] (Prevnar7) Branch Pneumococcal 7 Unknown Completed [facility] Conjugate, PCV7 [place] [facility] (Prevnar7) Branch Pneumococcal 7 Unknown Completed [facility] Conjugate, PCV7 [facility] ical (Prevnar7) Branch Pneumococcal 7 Unknown Completed [facility] Conjugate, PCV7 [place] [facility] (Prevnar7) Branch IPV Unknown Completed [facility] IPV Unknown Completed [facility] IPV Unknown Completed [facility] IPV Unknown Completed [facility] TDAP Unknown Completed [facility] Varicella Unknown Completed [facility] (varivax)(chicken [place] [facility] pox) Branch DTaP, Unspecified Unknown Completed Univers ity of Formulation [facility] DTaP, Unspecified Unknown Completed Univers ity of Formulation [facility] DTaP, Unspecified Unknown Completed Univers ity of Formulation [facility] DTaP, Unspecified Unknown Completed Univers ity of Formulation [facility] DTaP, Unspecified Unknown Completed Univers ity of Formulation [facility] SARS-COV-2 COVID-19 Unknown Completed Unive rsity of VACCINE - (MODERNA) [facility] SARS-COV-2 COVID-19 Unknown Completed Unive rsity of VACCINE - (MODERNA) [facility] HEPATITIS A Unknown Completed [facility] HEPATITIS A Unknown Completed [facility] HEPATITIS A Unknown Completed [facility] Hep B, Adol or Pedi Unknown Completed Unive rsity of Dosage [facility] Hep B, Adol or Pedi Unknown Completed Unive rsity of Dosage [facility] Hep B, Adol or Pedi Unknown Completed Unive rsity of Dosage [facility] Hib-HbOC Unknown Completed [facility] HIB 4 Dose Schedule Unknown Completed [facility] [place] [facility] 4 Dose Schedule Unknown Completed [facility] [place] HIB 4 Dose Schedule Unknown Completed Unive [facility] HPV Unknown Completed [facility] Vital Signs Vital Name Observation Time Observation Value Comments Source Systolic blood 2022-11-23 15:14:00 108 mm[Hg] Univer sity of pressure [facility] Diastolic blood 2022-11-23 15:14:00 71 mm[Hg] Unive rsity of pressure [facility] Heart rate 2022-11-23 15:14:00 65 /min [facility] Respiratory rate 2022-11-23 15:14:00 18 /min [facility] Body height 2022-11-23 15:14:00 167.6 cm [facility] Body weight 2022-11-23 15:14:00 108.41 kg [facility] BMI 2022-11-23 15:14:00 38.58 kg/m2 [facility] Systolic blood 2022-08-15 13:23:00 111 mm[Hg] Univer sity of pressure [facility] Diastolic blood 2022-08-15 13:23:00 74 mm[Hg] Unive rsity of pressure [facility] Heart rate 2022-08-15 13:23:00 64 /min Universi ty of [facility] Respiratory rate 2022-08-15 13:23:00 18 /min Univ ersity of [facility] Body height 2022-08-15 13:23:00 167.6 cm Universi ty of [facility] Body weight 2022-08-15 13:23:00 113.853 kg Universi ty of [facility] BMI 2022-08-15 13:23:00 40.51 kg/m2 Universi ty of [facility] HEIGHT 2022-06-25 09:12:00 167.6 cm WEIGHT 2022-06-25 09:12:00 111.131 kg HEIGHT 2022-06-25 09:12:00 167.6 cm WEIGHT 2022-06-25 09:12:00 111.131 kg HEIGHT 2022-06-25 09:12:00 167.6 cm WEIGHT 2022-06-25 09:12:00 111.131 kg Systolic blood 2022-06-05 21:36:00 116 mm[Hg] Univer sity of pressure [facility] Diastolic blood 2022-06-05 21:36:00 76 mm[Hg] Unive rsity of pressure [facility] Heart rate 2022-06-05 21:36:00 87 /min Universi ty of [facility] Respiratory rate 2022-06-05 21:36:00 18 /min Univ ersity of [facility] Body height 2022-06-05 21:36:00 167.6 cm Universi ty of [facility] Body weight 2022-06-05 21:36:00 111.131 kg Universi ty of [facility] BMI 2022-06-05 21:36:00 39.54 kg/m2 Universi ty of [facility] [place] [facility] Systolic blood 2022-05-12 20:30:00 104 mm[Hg] Univer sity of pressure [facility] Diastolic blood 2022-05-12 20:30:00 69 mm[Hg] Unive rsity of pressure [facility] Heart rate 2022-05-12 20:30:00 73 /min Universi ty of [place] [facility] [place] Body temperature 2022-05-12 20:30:00 36.72 Divya [facility] [place] Respiratory rate 2022-05-12 20:30:00 18 /min [facility] ersity of [facility] Body height 2022-05-12 20:30:00 167.6 cm Universi ty of [facility] Body weight 2022-05-12 20:30:00 108.863 kg Universi ty of [facility] BMI 2022-05-12 20:30:00 38.74 kg/m2 Universi ty of [facility] Systolic blood 2022-01-10 16:03:00 109 mm[Hg] Univer sity of [facility] Diastolic blood 2022-01-10 16:03:00 67 mm[Hg] Unive ity of [facility] Heart rate 2022-01-10 16:03:00 73 /min Universi ty of [facility] Body temperature 2022-01-10 16:03:00 36.83 Divya [facility] Body height 2022-01-10 16:03:00 167.6 cm Universi ty of [facility] Body weight 2022-01-10 16:03:00 117.845 kg Universi ty of [facility] BMI 2022-01-10 16:03:00 41.93 kg/m2 Universi ty of [facility] Systolic blood 2022-06-25 14:04:00 107 mm[Hg] [facility] Diastolic blood 2022-06-25 14:04:00 67 mm[Hg] [facility] Heart rate 2022-06-25 14:04:00 68 /min [facility] Body temperature 2022-06-25 14:04:00 37.33 Divya [facility] Respiratory rate 2022-06-25 14:04:00 18 /min [facility] Oxygen saturation in 2022-06-25 11:30:00 97 /min [facility] Arterial blood by Medical Ce nter Pulse oximetry Body height 2022-06-25 09:12:00 167.6 cm [facility] Body weight 2022-06-25 09:12:00 111.131 kg [facility] BMI 2022-06-25 09:12:00 39.54 kg/m2 [facility] Procedures Procedure Date / Time Performing Clinician Source Performed CONSENT FOR 2022-08-15 05:01:00 Doctor Unassigned, Carmelina Morgan [facility] POCT TEST 2022-08-15 00:00:[address] [facility] CBC W/PLT COUNT & AUTO 2022-06-25 11:30:00 Nell [facility] DIFFERENTIAL [facility] COMPREHENSIVE METABOLIC 2022-06-25 11:30:00 Nell, [facility] PANEL [facility] LIPASE 2022-06-25 11:30:00 Nell [facility] HCG, QUANTITATIVE, 2022-06-25 11:30:00 Nell [facility] CBC W/PLT COUNT & AUTO 2022-06-25 11:30:00 Nell [facility] DIFFERENTIAL [facility] GC & CHLAMYDIA AMPLIFIED 2022-06-05 21:50:00 Myesha Pierre [facility] TRICHOMONAS AMPLIFIED 2022-06-05 21:50:00 [facility]esha [facility] Plan of Care Planned Activity Planned Date Details Comments Source Future Scheduled 2025-01-18 DTAP/TDAP/TD VACCINES ([address] [facility] Test 00:00:00 - Td or Tdap) [code = Medica l Center DTAP/TDAP/TD VACCINES (2 - Td or Tdap)] Future Scheduled 2023-06-[address] [facility] Test 00:00:00 Counseling and Screening Med ica Center (12+) [code = Tobacco Cessation Counseling and Screening (12+)] Future Scheduled 2023-02-02 Influenza Vaccine (#1) [facility] 00:00:00 [code = Influenza Vaccine Ne dical Center (#1)] Future Scheduled 2022-06-[address] [facility] Test 00:00:00 (12+) [code = DEPRESSION Med ical Center SCREENING (12+)] Future Scheduled 2022-05-11 Lipid panel (procedure) [facility] 00:00:00 [code = 06019670] Medical Ce nter Future Scheduled 2020-12-22 COVID-19 VACCINE (3 - [facility]00 Booster for [facility] series) [code = COVID-19 VACCINE (3 - Booster for Moderna series)] Future Scheduled 2020-05-11 HEPATITIS C SCREENING [facility] 00:00:00 [code = HEPATITIS C Medical Center SCREENING] Future Scheduled 2017-05-[address] [facility] 00:00:00 virus screening Medical Cent er (procedure) [code = 186511404] Encounters Start End Encounter Admission Attending Care Care Encounter Source Date/Time Date/Time Type Type Clinicians Facility Department ID 2021-04-01 Outpatient CHARLINE BERNARDO [facility] [id number] Univers 09:41:28 [facility] 2023-02-27 2023-02-27 Outpatient R MYESHA PIERRE [facility] [id number] Univers 09:00:00 09:00:00 MYESHA PIERRE [facility] 2023-02-21 2023-02-21 Outpatient R MYESHA PIERRE [facility] [id number] Univers 14:45:00 15:00:48 MYESHA PIERRE [facility] 2023-02-21 2023-02-21 College Administrator 2, Adc Lab [facility] 1.2.840.114 [id number] Univers 14:45:00 15:00:00 Visit Myesha Pierre 350.1.13. 10 [facility] [place]2.[place].2.[place] [id number] [address] 2022-11-23 2022-11-23 Outpatient R MYESHA PIERRE [facility] [id number] Univers 10:00:00 10:20:59 MYESHA PIERRE [facility] 2022-11-23 2022-11-23 Office Derrek [facility] 1.2.840.114 [id number] Univers 10:00:00 10:20:59 Visit Myesha DAY 350.1.13.10 it y of W[place].2.[place] [id number] [address] 2022-11-07 2022-11-07 Outpatient R MYESHA PIERRE [facility] [id number] Univers 09:00:00 09:00:00 [facility]HA [facility] 2022-08-23 2022-08-23 Patient Doctor JENNA 1.2.840.114 [id number] Univers 00:00:00 00:00:00 Secure Msg Unassigned, [place] 350.1.13.10 ity of [place] 4.2.7.2.686 [place] [id number] Ne dic[address] 2022-08-18 2022-08-18 [facility]phone [facility] 1.2.840.11 [id number] Univers 00:00:00 00:00:00 Myesha DAY 350.1.13.10 [place] [facility] [id number] [address] 2022-08-15 2022-08-15 Outpatient R SUZANNE PIERRELASHAY [facility] [id number] Univers 08:00:00 08:42:17 MELVIMYESHA TAMEZ nickmaster [facility] 2022-08-15 2022-08-15 Office VioletaFormerly [facility] 1.2.840.114 [id number] Univers 08:00:00 08:42:17 Visit Myesha DAY 350.1.13.10 it y of [place] 4[place]2.[place].2.[place] [id number] [address] 2022-08-15 2022-08-15 Orders Doctor SUSAN 1.2.840.114 [id number] Univers 00:00:00 00:00:00 Only Unassigned, MAIKOL 350.1.13.10 ity of Gypsy [facility] 4.2.7.2.686 Alexis as [phone] [address] 2022-08-14 2022-08-14 Outpatient R VIOLETAMYESHA CLEMONS [facility] [id number] Univers 10:30:00 10:30:00 MELVIMYESHA TAMEZ ity [facility] 2022-08-14 2022-08-14 Patient Doctor JENNA TRIVEDI 1.2.197.689 [id number] Univers 00:00:00 00:00:00 Secure Msg UnassignedBARB 350.1.13.10 ity of [place] [facility] 4.2.7.2.[address] [facility] [id number] [address] 2022-06-25 2022-06-25 Emergency [facility] [id number] 09:18:00 14:06:00 [facility] 2022-06-25 2022-06-25 Emergency ER [facility] Emergency [id number] [facility] 09:18:00 14:06:00 [place] 2022-06-25 2022-06-[address] [facility] [id number] [facility] St 00:00:00 00:00:00 [facility] 2022-06-09 2022-06-09 Patient Doctor [facility] 1.2.783.351 [id number] Univers 00:00:00 00:00:00 Secure Msg UnassignedBARB 350.1.13.10 ity of [place] [facility] [place] [id number] [address] 2022-06-09 2022-06-09 Telephone [facility] 1.2.840.11 [id number] Univers 00:00:00 00:00:00 Myesha BARB 350.1.13.10 it y of WOMEN'S 4.2.7.2.686 [facility] [id number] [address] 2022-06-06 2022-06-06 [facility] 12.840.11 4 [id number] Univers 00:00:00 00:00:00 Myesha BARB 350.1.13.10 it y of [place] 4.2.7.2.686 [place] [id number] [address] 2022-06-05 2022-06-05 College Administrator Verito Yin Lab Main [facility] 1.2.8 40.114 [id number] Univers 16:45:00 17:00:00 Visit MelviMyesha tamezPINA 350.1.13. 10 ity of [facility] 4.2.7.2.[place] [id number] Ne dical [address] 2022-06-05 2022-06-05 Outpatient R LUZ ELENAMYESHA MCCAIN [facility] B [id number] Univers 15:30:00 15:48:01 MELVIMYESHA TAMEZ [facility] 2022-06-05 2022-06-05 Office [facility] 1.2.840.114 [id number] Univers 15:30:00 15:48:01 Visit Myesha DAY 350.1.13.10 it y of WOMEN'S 4.2.7.2.686 [facility] s HEALTH [id number] [address] 2022-06-01 2022-06-01 Outpatient R [facility] [id number] Univers 13:30:00 13:30:00 SHEA crisostomo [facility] 2022-05-12 2022-05-12 Outpatient R LUZ ELENAMYESHA MCCAIN [facility] B [id number] Univers 14:00:00 14:56:35 VIOLETAMYESHA CLEMONS [facility] 2022-05-12 2022-05-12 Office [facility] 1.2.840.114 [id number] Univers 14:00:00 14:56:35 Visit Myesha DAY 350.1.13.10 it [place] 4[place].2.[place] [id number] [address] 2022-01-11 2022-01-11 [facility] 1.2.840.114 [id number] Univers 00:00:00 00:00:00 Management Shea BERMAN 350.1.13.10 ity of [place] 4.2.7.2.[place] [id number] Ne dical NAL [address] [facility] 2022-01-11 2022-01-11 Patient Adum, [facility] 1.2.840.114 [id number] Univers 00:00:00 00:00:00 Secure Msg Shea Mo HEALTH 350.1.13.10 ity of [place] 4.2.7.2.686 Alexis as JORGE A?BLEA [id number] Ne dical KNEY 044 [facility] OFFICE [facility] 2022-01-10 2022-01-10 College Administrator 2, Adc Lab [facility] 1.2.840.114 [id number] Univers 13:00:00 13:15:00 Visit AdumShea 350.1.13.10 ity of [place] 4.2.7.2.686 [place] [id number] Ne dical [facility] [address] [facility] 2022-01-10 2022-01-10 Outpatient R AD, [facility] [id number] Univers 10:30:00 12:13:34 SHEA ity [facility] 2022-01-10 2022-01-10 Office Ad, [facility] 1.2.840.114 [id number] Univers 10:30:00 12:13:34 Visit Shea [place] 350.1.13.10 ity of [place] 4.2.7.2.686 [place] [id number] Ne dical NAL [address] [facility] 2021-11-15 2021-11-15 College Administrator 2, Adc Lab [facility] 1.2.840.114 [id number] Univers 09:00:00 09:15:00 Visit AdShea morel [place] 350.1.13.10 ity of [place] 4.2.7.2.686 [place] [id number] Ne dical [address] 2021-11-15 2021-11-15 Outpatient R ADUM, [facility] [id number] Univers 08:00:00 08:40:09 SHEA ity [facility] 2021-11-15 2021-11-15 Office Adum, [facility] 1.2.840.114 [id number] Univers 08:00:00 08:40:09 Visit Shea BERMAN 350.1.13.10 it[place] of [place] 4.2.7.2.686 [place] [id number] [address] 2021-10-26 2021-10-[address] [facility] 1.2.896.095 [id number] Univers 00:00:00 00:00:00 [facility] 350.1.13.10 ity of [place] 4.2.7.2.[place] - [id number] Med ical [address] 2021-10-25 2021-10-25 Outpatient CARLOS MANUEL MELGAR [facility] [id number] Univers 09:00:00 09:00:00 [facility] 2021-10-20 2021-10-20 Outpatient Everett MILLAN [facility] [id number] Univers 10:30:00 10:30:00 SHEA [facility] 2021-09-28 2021-09-28 [facility] 1.2.840.114 [id number] Univers 00:00:00 00:00:00 Ramón BERMAN 350.1.13.10 i ty of [place] 4.2.7.2.686 [place] [id number] [address] 2021-09-14 2021-09-[address] [facility] 1.2.841.372 [id number] Univers 15:00:00 16:12:34 Visit Ramón BERMAN 350.1.13.10 i ty of [place] 4.2.7.2.686 [place] [id number] Ne dic[address] 2021-09-14 2021-09-14 Outpatient R MARA [facility] [id number] Univers 15:00:00 16:12:34 RAMÓN crisostomo [facility] 2021-09-14 2021-09-14 Outpatient R MARA [facility] [id number] Univers 15:00:00 15:00:00 RAMÓN crisostomo [facility] 2021-06-09 2021-06-09 Outpatient R GARRETT, [facility] [id number] Univers 15:00:00 15:00:00 WING crisostomo o f [facility] 2021-06-08 2021-06-08 Outpatient R KING ERIK, [facility] [id number] Univers 15:00:00 15:00:00 CINDY ity [facility] 2021-06-07 2021-06-07 Case Monty, [facility] 1.2.840.114 [id number] Univers 00:00:00 00:00:00 Management Shea BERMAN 350.1.13.10 ity [facility] 4.2.7.[place] [id number] Ne dical NAL [address] [facility] 2021-06-06 2021-06-06 Patient Doctor SUSAN 1.2.840.114 [id number] Univers 00:00:00 00:00:00 Secure Msg Unassigned, MAIKOL 350.1.13.10 ity of Gypsy [facility] 4.2.7.2.686 Alexis as [id number] [address] 2021-06-04 2021-06-04 Laboratory Only, Ang Db Test [facility] 1.2.8 40.114 [id number] Univers 20:15:00 20:30:00 Only Isaiah Jemima [facility] 350.1.13.10 ity [facility] 4.2.7.2.686 Alexis as JORGE A?BLEA [id number] Ne dical KNEY [address] [facility] 2021-06-04 2021-06-04 Outpatient R ISAIAH [facility] [id number] Univers 20:15:00 20:15:00 JEMIMA ity [facility] 2021-06-01 2021-06-01 Outpatient R MONTY [facility] [id number] Univers 14:45:00 14:45:00 SHEA itmaster [facility] 2021-06-01 2021-06-01 College Administrator 2, Adc Lab [facility] 1.2.840.114 [id number] Univers 14:45:00 14:45:00 Visit Shea Millan 350.1.13.10 ity of [facility] 4.2.7.[place] [id number] Ne dical NAL [address] [facility] 2021-06-01 2021-06-01 Office [facility] 1.2.840.114 [id number] Univers 13:30:00 14:25:37 Visit Shea BERMAN 350.1.13.10 [facility] 4.2.7.2.[place] [id number] Ne dical NAL [address] [facility] 2021-06-01 2021-06-01 Outpatient R MONTY [facility] [id number] Univers 13:30:00 14:25:37 SHEA [facility] 2020-12-21 2020-12-21 Outpatient R MARA [facility] [id number] Univers 10:00:00 10:00:00 [facility] 2020-08-10 2020-08-10 Outpatient Everett TERRY [facility] [id number] Univers 09:00:00 09:00:00 [facility] 2020-02-11 2020-02-11 Outpatient R CHARLINE BERNARDO [facility] [id number] Univers 13:45:00 13:45:00 [facility] 2020-02-04 2020-02-04 Outpatient R CHARLINE BERNARDO [facility] [id number] Univers 15:30:00 15:30:00 [facility] 2020-01-30 2020-01-30 Outpatient CHARLINE RITCHIE [facility] [id number] Univers 15:40:00 15:40:00 [facility] 2020-01-30 2020-01-30 Outpatient R CHARLINE BERNARDO [facility] [id number] Univers 11:30:00 11:30:00 [facility] 2020-01-28 2020-01-28 Outpatient CHARLINE RITCHIE [facility] [id number] Univers 13:15:00 13:15:00 [facility] 2020-01-14 2020-01-16 Office Ashley Charline [facility] 1.2.840.114 [id number] Univers 14:36:03 11:26:18 Visit E Health 350.1.13.10 it y of Cancer 4.2.7.2.686 [facility] - [phone] Med ical [address] 2020-01-14 2020-01-14 Outpatient R CHARLINE BERNARDO [facility] [id number] Univers 14:00:00 14:00:00 ity of [facility] 2020-01-09 2020-01-09 Telephone Ashley [facility] 1.2.840.114 [id number] Univers 00:00:00 00:00:00 E SPECIALTY 350.1.13.10 ity of CARE 4.2.7.2.686 [facility] AT [id number] [facility] BROOKHAVENMaster [address] [place] [address] 2020-01-08 2020-01-08 Office Jose Juan [facility] 1.2.840.114 [id number] Univers 14:46:55 15:17:58 Visit Reggie SPECIALTY 350.1.13.10 ity of CARE 4.2.7.2.686 [facility] AT [id number] Ne maryloumilly BROOKHAVENMaster [address] [place] [address] 2020-01-08 2020-01-08 Outpatient R JOSE JUAN [facility] [id number] Univers 14:30:00 14:30:00 REGGIE romeroy o f [facility] 2020-01-06 2020-01-06 [facility] 1.2.840.114 [id number] Univers 10:02:00 17:04:00 Encounter E Health 350.1.13.10 ity of [place] 4.2.7.2.686 [facility] [id number] [address] ([facility]) 2020-01-04 2020-01-04 Patient Doctor SUSAN 1.2.840.114 [id number] Univers 00:00:00 00:00:00 Secure Msg Unassigned, MAIKOL 350.1.13.10 ity of Gypsy [facility] 4.2.7.2.686 [facility] [id number] [address] 2020-01-04 2020-01-04 Patient Doctor SUSAN 1.2.840.114 [id number] Univers 00:00:00 00:00:00 Secure Msg Unassigned, MAIKOL 350.1.13.10 ity of Gypsy HOSPITAL 4.2.7.2.686 Alexis as [id number] [address] 2020-01-02 2020-01-02 Office Charline Bernardo [facility] 1.2.840.114 [id number] Univers 14:23:44 16:33:33 Visit E SPECIALTY 350.1.13.10 it[place] of [place].2.[place] AT [id number] Ne storm CHAMBERS [address] [facility] 2020-01-02 2020-01-02 Laboratory Only, [facility] Test [facility] 1.2.840. 114 [id number] Univers 15:43:58 15:58:58 Only Charline Bernardo MULTISPEC 350.1.13.10 ity of I[place] 4.2.7.2.686 [place] [id number] [facility] AND [facility] [address] [place] [facility] 2020-01-02 2020-01-02 Outpatient R CHARLINE BERNARDO [facility] [id number] Univers 14:15:00 14:15:00 ity of [facility] 2019-12-31 2019-12-31 Telephone Charline Bernardo [facility] 1.2.840.114 [id number] Univers 00:00:00 00:00:00 E SPECIALTY 350.1.13.10 it[place] of [place].2.[place] [phone] Ne storm VICTORMaster [address] [place] [address] 2019-12-31 2019-12-31 Prep For Chalrine Bernardo [facility] 1.2.840.114 [id number] Univers 00:00:00 00:00:00 Surgery E SPECIALTY 350.1.13.10 it[place] of [place] 4[place].2.[place] [id number] Ne dicmilly [facility]CTORMaster [address] [facility] 2019-12-22 2019-12-22 Office Mara INMADYSON 1.2.971.927 [id number] Univers 14:57:22 15:27:22 Visit Ramón Berman 350.1.13.10 i ty of [place]anna [id number] [phone] Ne dical nal [address] 2019-12-22 2019-12-22 Outpatient R MARA [facility] [id number] Univers 14:45:00 14:45:00 RAMÓN ity of [facility] 2019-12-22 2019-12-22 Orders Doctor SUSAN [id number] Univers 00:00:00 00:00:00 Only Unassigned, MAIKOL [id number] ity of [facility] [id number] Alexis as [phone] [address] 2019-11-28 2019-11-28 [facility] [id number] Univers 08:56:06 14:14:29 Visit E Health [id number] it [id number] - [phone] [facility] ical [address] 2019-11-28 2019-11-28 Outpatient R CHARLINE BERNARDO [facility] [id number] Univers 08:45:00 08:45:00 ity of [facility] 2019-11-28 2019-11-28 Orders Doctor SUSAN [id number] Univers 00:00:00 00:00:00 Only Unassigned, MAIKOL [id number] ity of [facility] [id number] Alexis as [phone] [address] 2019-11-14 2019-11-14 Outpatient R CHARLINE BERNARDO [facility] [id number] Univers 10:45:00 10:45:00 ity of [facility] 2019-09-12 2019-10-30 Telemedici Ashley [facility] [id number] Univers 07:24:07 06:50:04 ne Visit E SPECIALTY [id number] [id number] [phone] Ne storm [address] 2019-09-12 2019-09-12 Outpatient R CHARLINE BERNARDO [facility] [id number] Univers 13:00:00 13:00:00 ity [facility] 2019-08-11 2019-08-11 Office Joseph Boyd [facility] [id number] Univers 09:14:16 10:41:48 Visit Dominick Berman [id number] i [place] of [id number] [phone] Ne dicmilly nal [address] 2019-08-11 2019-08-11 Outpatient R JOSEPH BOYD [facility] [id number] Univers 09:30:00 09:30:00 ity of [facility] 2019-08-11 2019-08-11 Orders Doctor SUSAN [id number] Univers 00:00:00 00:00:00 Only Unassigned, MAIKOL [id number] ity of [place] [facility] [id number] Alexis as [phone] [address] 2019-06-20 2019-06-24 Office Charline Bernardo [facility] [id number] Univers 16:31:33 07:24:40 Visit E SPECIALTY [id number] [id number] [phone] Ne storm [place] [address] [facility] 2019-02-10 2019-02-10 Nurse Nurse, [facility] [id number] Univers 14:11:00 14:50:02 Visit BoydJoseph Dominick Berman [id number] ity of [id number] [phone] Ne dicme nal [address] 2019-01-06 2019-01-06 Telephone AshleyCharline [facility] [id number] Univers 00:00:00 00:00:00 E SPECIALTY [id number] [id number] [phone] Ne storm [place] [address] [facility] Results Test Description Test Time Test Comments Results Result Comments Source POCT TEST 2022-08-15 13:39:00 Test Item Value Reference Range Interpretation Comme nts POCT PREG (test code = 1605) Negative On board controls acceptable with C Line (test code = 3574) Yes POCT PREG LOT # (test code = 3575) POCT PREG TEST DATE (test code = 3576) [facility] [place] [facility] [id number] 13:39:00 Test Item Value Reference Range Interpretation Comments POCT PREG (test code = 1605) Negative On board controls acceptable with C Yes Line (test code = 3574) POCT PREG LOT # (test code = 3575) POCT PREG TEST DATE (test code = 3576) [facility] [id number] 13:39:00 Test Item Value Reference Range Interpretation Comments POCT PREG (test code = 1605) Negative On board controls acceptable with C Yes Line (test code = 3574) POCT PREG LOT # (test code = 3575) POCT PREG TEST DATE (test code = 3576) [facility], QUANTITATIVE, [id number] 13:19:37 Test Item Value Reference Range Interpretation Comments GONADOTROPIN, CHORIONIC (HCG) QUANT < mIU/mL 0-10 (BEAKER) (test code = 649) Non- Females: <10 mIU/mL Females: Gestation Age Reference Range(mIU/mL) 0.2-1 Week 5-50 1-2 Weeks 50-500 2-3 Weeks 100-5,000 3-4 Weeks 500-10,000 4-5 Weeks 1,000-50,000 5-6 Weeks 10,000-100,000 6-8 Weeks 15,000- 200,000 2-3 Months 10,000-100,000 Pmo Lead ID - MARCOCOMPREHENSIVE METABOLIC [id number] 12:59:48 Test Item Value Reference Range Interpretation Comments TOTAL PROTEIN 7.9 gm/dL 6.0-8.3 Specimen sligh tly (BEAKER) (test hemolyzed code = 770) ALBUMIN (BEAKER) 4.1 g/dL 3.5-5.0 Specimen sl ightly (test code = 1145) hemolyzed ALKALINE 83 U/L 40-150 PHOSPHATASE (BEAKER) (test code = 346) BILIRUBIN TOTAL 0.8 mg/dL 0.2-1.2 Specimen sli ghtly (BEAKER) (test hemolyzed code = 377) SODIUM (BEAKER) 139 meq/L 136-145 (test code = 381) POTASSIUM (BEAKER) 3.9 meq/L 3.5-5.1 Specimen slightly (test code = 379) hemolyzed CHLORIDE (BEAKER) 107 meq/L 98-107 (test code = 382) CO2 (BEAKER) (test 23 meq/L 22-29 code = 355) BLOOD UREA 8 mg/dL 7-21 NITROGEN (BEAKER) (test code = 354) CREATININE 0.67 mg/dL 0.57-1.25 Specimen slight ly (BEAKER) (test hemolyzed code = 358) GLUCOSE RANDOM 87 mg/dL 70-105 (BEAKER) (test code = 652) CALCIUM (BEAKER) 9.5 mg/dL 8.4-10.2 (test code = 697) AST (SGOT) 24 U/L 5-34 Specimen slight ly (BEAKER) (test hemolyzed code = 353) ALT (SGPT) 22 U/L 6-55 Specimen slight ly (BEAKER) (test hemolyzed code = 347) EGFR (BEAKER) 128 Interpretatio n of eGFR (test code = 1092) mL/min/1.[address] age Description sq m Result G1 Kiki l or high >=90 G2 Mildly decreased 60-89 G3a Mildl y to moderately 45-5 9 G3b Moderately to s everely 30-44 G4 Severl y decreased 15-29 G5 Kidney failure <15Reported eGF R is based on the CKD-EPI 2021 equation that d oes not use a race coefficientEsti mated GFR is not as accur ate as Creatinine Jaida negrete in predicting glom erular filtration rate . Estimated GFR is not appl icable for dialysis patien ts Pmo Lead ID - [id number] 12:59:48 Test Item Value Reference Range Interpretation Comments LIPASE (BEAKER) (test code = 749) 34 U/L 8-78 Pmo Lead ID - MARCOCBC W/PLT COUNT & AUTO [id number] 12:48:04 Test Item Value Reference Range Interpretation Comments WHITE BLOOD CELL COUNT (BEAKER) 12.0 K/ L 3.5-10.5 H (test code = 775) RED BLOOD CELL COUNT (BEAKER) 5.19 M/ L 3.93-5.22 (test code = 761) HEMOGLOBIN (BEAKER) (test code = 15.4 GM/DL 11.2-15.7 410) HEMATOCRIT (BEAKER) (test code = 45.6 % 34.1-44.9 H 411) MEAN CORPUSCULAR VOLUME (BEAKER) 88 fL 79-95 (test code = 753) MEAN CORPUSCULAR HEMOGLOBIN 29.7 pg 25.6-32.2 (BEAKER) (test code = 751) MEAN CORPUSCULAR HEMOGLOBIN CONC 33.8 GM/DL 32.2-35.5 (BEAKER) (test code = 752) RED CELL DISTRIBUTION WIDTH 12.6 % 11.7-14.4 (BEAKER) (test code = 412) PLATELET COUNT (BEAKER) (test 323 K/CU MM 150-450 code = 756) MEAN PLATELET VOLUME (BEAKER) 10.3 fL 9.4-12.3 (test code = 754) NUCLEATED RED BLOOD CELLS 0 /100 WBC 0-0 (BEAKER) (test code = 413) NEUTROPHILS RELATIVE PERCENT 77 % (BEAKER) (test code = 429) LYMPHOCYTES RELATIVE PERCENT 17 % (BEAKER) (test code = 430) MONOCYTES RELATIVE PERCENT 5 % (BEAKER) (test code = 431) EOSINOPHILS RELATIVE PERCENT 0 % (BEAKER) (test code = 432) BASOPHILS RELATIVE PERCENT 0 % (BEAKER) (test code = 437) NEUTROPHILS ABSOLUTE COUNT 9.28 K/ L 1.56-6.13 H (BEAKER) (test code = 670) LYMPHOCYTES ABSOLUTE COUNT 2.02 K/ L 1.18-3.74 (BEAKER) (test code = 414) MONOCYTES ABSOLUTE COUNT (BEAKER) 0.62 K/ L 0.24-0.36 H (test code = 415) EOSINOPHILS ABSOLUTE COUNT 0.01 K/ L 0.04-0.36 L (BEAKER) (test code = 416) BASOPHILS ABSOLUTE COUNT (BEAKER) 0.05 K/ L 0.01-0.08 (test code = 417) IMMATURE GRANULOCYTES-RELATIVE 0.20 % 0.00-1.00 PERCENT (BEAKER) (test code = 2801)
[2023-03-24 19:10] LABS: Absolute Lymphocytes (CBC) 2.9 K/uL (0.7-4.9); Hematocrit 41.8 % (36.0-45.0); Lymphocytes % 33.4 % (15.3-44.8); MCV 88.8 fL (80-100); MPV 8.5 fL (7.6-11.3); Platelets 244 thou/uL (152-406)
[2023-03-24] MEDS ORDERED: NA CHLORIDE 0.9% 1,000 ML ONE (19:10)
[2023-03-24 19:33] LABS: Specific Gravity 1.017 (1.005-1.030)
[2023-03-24 19:35] LABS: Specific Gravity 1.017 (1.005-1.030); Urine Bacteria <20 /HPF (<20); Urine Bilirubin NEGATIVE (Negative); Urine Blood Negative (Negative); Urine Clarity Turbid (Clear); Urine Color Light-Yellow (Yellow); Urine Glucose NEGATIVE (Negative); Urine Mucus Slight /HPF (None Seen); Urine Protein NEGATIVE (Negative); Urine RBC <5 /HPF (None Seen); Urine Urobilinogen Normal (Normal); Urine pH 7.5 (5.0-7.0)
[2023-03-24 19:46] LABS: Albumin 3.5 g/dL (3.4-5.0); Bilirubin Total 0.7 mg/dL (0.2-1.0); Potassium 3.8 mEq/L (3.5-5.1); Protein, Total 7.3 g/dL (6.4-8.2); Thyroid Stimulating Hormone 1.06 uIU/mL (0.358-3.740)
--- NOTE | 2023-03-24 21:24 | EDPHYS ---
Physician Documentation [facility] Name: Sean Cantor Age: 22 yrs Sex: Female : 2000 Arrival Date: 03/24/2023 Time: 18:28 Bed 11 Private MD: ED Physician Juan Sterling HPI: 03/24 19:35 This 22 yrs old Black Female presents to ER via Ambulatory with complaints of Abdominal snw Pain. 19:35 The patient presents with abdominal pain that is diffuse. Onset: The symptoms/episode snw began/occurred gradually, 3 week(s) ago, and became persistent. The symptoms are described as achy, waxing/waning. Severity of pain: At its worst the pain was moderate. The patient has not experienced similar symptoms in the past. It is unknown whether or not the patient has recently seen a physician. CAR JOCKEY: 22:01 LMP N/A - control method, Not me1 Historical: - Allergies: 18:47 No Known Allergies; hb - Home Meds: 18:47 None [Active]; hb - PMHx: 18:47 abscess; hb - PSHx: 18:47 D\T\C (abscess); Breast Reduction (abscess); hb - Immunization history:: Adult Immunizations up to date. - Social history:: Smoking status: Patient denies any tobacco usage or history of. ROS: 19:32 Constitutional: Negative for fever, chills, and weight loss, Eyes: Negative for injury, snw pain, redness, and discharge, ENT: Negative for injury, pain, and discharge, Neck: Negative for injury, pain, and swelling, Cardiovascular: Negative for chest pain, palpitations, and edema, Respiratory: Negative for shortness of breath, cough, wheezing, and pleuritic chest pain, Back: Negative for injury and pain, : Negative for injury, bleeding, discharge, and swelling, MS/Extremity: Negative for injury and deformity, Skin: Negative for injury, rash, and discoloration, 19:32 Abdomen/GI: Positive for abdominal pain, abdominal distension, of the generalized, pt states she can feel/see pulsation in her abdomen. Pt's Mom told her she has lost weight, 19:32 Neuro: Positive for episodes of hot flashes, near syncope, and fatigue, also c/o not sleeping well, Exam: 19:32 Constitutional: This is a well developed, well nourished patient who is awake, alert, snw and in no acute distress. Head/Face: Normocephalic, atraumatic. Eyes: Pupils equal round and reactive to light, extra-ocular motions intact. Lids and lashes normal. Conjunctiva and sclera are non-icteric and not injected. Cornea within normal limits. Periorbital areas with no swelling, redness, or edema. ENT: Nares patent. No nasal discharge, no septal abnormalities noted. Tympanic membranes are normal and external auditory canals are clear. Oropharynx with no redness, swelling, or masses, exudates, or evidence of obstruction, uvula midline. Mucous membranes moist. Neck: Trachea midline, no thyromegaly or masses palpated, and no cervical lymphadenopathy. Supple, full range of motion without nuchal rigidity, or vertebral point tenderness. No Meningismus. Chest/axilla: Normal chest wall appearance and motion. Nontender with no deformity. No lesions are appreciated. Cardiovascular: Regular rate and rhythm with a normal S1 and S2. No gallops, murmurs, or rubs. Normal PMI, no JVD. No pulse deficits. Respiratory: Lungs have equal breath sounds bilaterally, clear to auscultation and percussion. No rales, rhonchi or wheezes noted. No increased work of breathing, no retractions or nasal flaring. Back: No spinal tenderness. No costovertebral tenderness. Full range of motion. Skin: Warm, dry with normal turgor. Normal color with no rashes, no lesions, and no evidence of cellulitis. MS/ Extremity: Pulses equal, no cyanosis. Neurovascular intact. Full, normal range of motion. Neuro: Awake and alert, GCS 15, oriented to person, place, time, and situation. Cranial nerves II-XII grossly intact. Motor strength 5/5 in all extremities. Sensory grossly intact. Cerebellar exam normal. Normal gait. Psych: Awake, alert, with orientation to person, place and time. Behavior, mood, and affect are within normal limits. 19:32 Abdomen/GI: Inspection: obese Bowel sounds: normal, Palpation: abdomen is soft and non-tender, in all quadrants, Vital Signs: 18:45 BP 121 / 93; Pulse 76; Resp 16; Temp 98.2(O); Pulse Ox 100% on R/A; Weight 111.13 kg; hb Height 5 ft. 6 in. ; Pain 6/10; 22:01 BP 124 / 81; Pulse 66; Resp 17; Pulse Ox 99% on R/A; me1 18:45 Body Mass Index 39.54 (111.13 kg, 167.64 cm) hb 18:45 Pain Scale: Adult hb MDM: 18:52 Patient medically screened. snw 19:36 Differential diagnosis: Cholelithiasis, gastritis, non-specific abd pain, ovarian cyst, snw hyperthyroid state. 21:28 Data reviewed: vital signs, nurses notes, lab test result(s), all within normal. I snw considered the following discharge prescriptions or medication management in the emergency department Medications were administered in the Emergency Department. See MAR. Counseling: I had a detailed discussion with the patient and/or guardian regarding the historical points, exam findings, and any diagnostic results supporting the discharge/admit diagnosis, the presence of at least one elevated blood pressure reading (>120/80) during this emergency department visit, lab results, radiology results, the need for outpatient follow up, for definitive care, to return to the emergency department if symptoms worsen or persist or if there are any questions or concerns that arise at home. Response to treatment: There is no appreciated change of the patient's symptoms at this time. Special discussion: Based on the patient's Hx, exam, and Dx evaluation, there is no indication for emergent surgery or inpatient Tx. It is understood by the patient/guardian that if the Sx's persist or worsen they need to return immediately for re-evaluation. I have referred the patient to see his PCP for further evaluation of high blood pressure. Based on the history and exam findings, there is no indication for further emergent testing or inpatient evaluation. I discussed with the patient/guardian the need to see the client service executive for further evaluation of the symptoms. I discussed with the patient/guardian the need to see the primary care provider for further evaluation of the symptoms. 03/24 18:50 Order name: CBC with Diff; Complete Time: 19:21 snw 03/24 18:50 Order name: CMP; Complete Time: 19:59 snw 03/24 18:50 Order name: Lipase; Complete Time: 19:59 snw 03/24 18:50 Order name: Test, Urine; Complete Time: 19:37 snw 03/24 18:50 Order name: Urinalysis w/ reflexes; Complete Time: 19:37 snw 03/24 19:21 Order name: Add On-Lab snw 03/24 19:25 Order name: Thyroid Stimulating Hormone; Complete Time: 19:59 EDMS 03/24 18:50 Order name: IV Saline Lock; Complete Time: 19:04 snw 03/24 18:50 Order name: Labs collected and sent; Complete Time: 19:04 snw Administered Medications: 19:04 Drug: NS 0.9% IV 1000 ml IV at 1 bolus Per protocol; 1000 mL bolus Route: IV; Rate: 1 ap3 bolus; Site: right antecubital; 20:15 Follow up: IV Status: Completed infusion eh3 21:26 Drug: Dicyclomine PO 20 mg PO once Route: PO; me1 22:02 Follow up: Response: No adverse reaction; Pain is decreased me1 Disposition Summary: 03/24/23 21:23 Discharge Ordered Notes: Location: Home snw Condition: Stable snw Diagnosis - Abdominal pain, Generalized snw Followup: snw - With: Emergency Department - When: As needed - Reason: Worsening of condition Followup: snw - With: Private Physician - When: 2 - 3 days - Reason: Recheck today's complaints, Continuance of care, Re-evaluation by your physician Discharge Instructions: - Discharge Summary Sheet snw - Abdominal Pain, Adult snw - Colic snw - Food Choices for Gastroesophageal Reflux Disease, Adult snw - Pain Without a Known Cause snw - Gas and Gas Pains, Pediatric snw - Form - Blood Pressure Record Sheet snw - [place] Diet snw - How to Take Your Blood Pressure snw Forms: - Medication Reconciliation Form snw - Thank You Letter snw - Antibiotic Education snw - Prescription Opioid Use snw - Patient Portal Instructions snw - Leadership Thank You Letter snw Prescriptions: - promethazine 25 mg Oral Tablet - take 1 tablet ORAL route every 6 hours As needed; 20 tablet; Refills: 0, snw Product Selection Permitted - dicyclomine 20 mg Oral tablet - take 1 tablet ORAL route 3 times per day As needed; 21 tablet; Refills: 0, snw Product Selection Permitted Signatures: Dispatcher [employer] EDJosie Leone FNP-C FNP-Csnw Veronica Velasquez, RN RN hb Darcie Mcgill, RN RN ap3 Aliza Martinez, RN RN me1 Annabelle Montesinos RN eh3
--- NOTE | 2023-03-24 21:24 | ER ---
Nurse's Notes [facility] Name: Sean Cantor Age: 22 yrs Sex: Female : 2000 Arrival Date: 03/24/2023 Time: 18:28 Bed 11 Private MD: Diagnosis: Abdominal pain, Generalized Presentation: 03/24 18:45 Chief complaint: Diffuse abdominal pain and decreased appetite x 2 weeks. Coronavirus hb screen: At this time, the client does not indicate any symptoms associated with coronavirus-19. Ebola Screen: No symptoms or risks identified at this time. Initial Sepsis Screen: Does the patient meet any 2 criteria? No. Patient's initial sepsis screen is negative. Does the patient have a suspected source of infection? No. Patient's initial sepsis screen is negative. Risk Assessment: Do you want to hurt yourself or someone else? Patient reports no desire to harm self or others. Onset of symptoms was March 10, 2023. 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 - Social history:: Smoking status: Patient denies any tobacco usage or history of. Screenin:16 [facility] ED Fall Risk Assessment (Adult) History of falling in the last 3 months, me1 including since admission No falls in past 3 months (0 pts) Confusion or Disorientation No (0 pts) Intoxicated or Sedated No (0 pts) Impaired Gait No (0 pts) Mobility Assist Device Used No (0 pt) Altered Elimination No (0 pt) Score/Fall Risk Level 0 - 2 = Low Risk. Abuse screen: Denies threats or abuse. Nutritional screening: No deficits noted. Tuberculosis screening: No symptoms or risk factors identified. Assessment: 19:16 General: Appears uncomfortable, well groomed, well developed, Behavior is calm, me1 cooperative, appropriate for age, Reports diffuse abdominal pain with decreased appetite for 2 weeks. Pain: Complains of pain in abdomen Pain does not radiate. Pain currently is 6 out of 10 on a pain scale. Quality of pain is described as crampy, Pain began 2 weeks ago Is continuous. Neuro: Level of Consciousness is awake, alert, obeys commands, Oriented to person, place, time, situation, Appropriate for age. Cardiovascular: Capillary refill < 3 seconds Patient's skin is warm and dry. Respiratory: Airway is patent Respiratory effort is even, unlabored, Respiratory pattern is regular, symmetrical. GI: Bowel sounds present X 4 quads. Abd is soft X 4 quads Reports diffuse abdominal pain and decreased appetite x 2 weeks. Vital Signs: 18:45 BP 121 / 93; Pulse 76; Resp 16; Temp 98.2(O); Pulse Ox 100% on R/A; Weight 111.13 kg; hb Height 5 ft. 6 in. ; Pain 6/10; 22:01 BP 124 / 81; Pulse 66; Resp 17; Pulse Ox 99% on R/A; me1 18:45 Body Mass Index 39.54 (111.13 kg, 167.64 cm) hb 18:45 Pain Scale: Adult hb ED Course: 18:31 Patient arrived in ED. ts1 18:46 Triage completed. hb 18:47 Arm band placed on. hb 18:50 Josie Sierra FNP-C is PHCP. snw 18:50 Juan Sterling MD is Attending Physician. snw 19:04 Initial lab(s) drawn, by ut, sent to lab. Inserted saline lock: 20 gauge in right ap3 antecubital area, using aseptic technique. Blood collected. 19:10 Aliza Martinez, RN is Primary Nurse. me1 19:16 Patient has correct armband on for positive identification. Bed in low position. Call me1 light in reach. Side rails up X 1. Provided Education on: POC. Verbalized understanding. . 19:16 No provider procedures requiring assistance completed. me1 19:25 Test, Urine Sent. me1 19:25 Urinalysis w/ reflexes Sent. me1 22:01 IV discontinued, intact, bleeding controlled, No redness/swelling at site. Pressure me1 dressing applied. Administered Medications: 19:04 Drug: NS 0.9% IV 1000 ml IV at 1 bolus Per protocol; 1000 mL bolus Route: IV; Rate: 1 ap3 bolus; Site: right antecubital; 20:15 Follow up: IV Status: Completed infusion 3 21:26 Drug: Dicyclomine PO 20 mg PO once Route: PO; me1 22:02 Follow up: Response: No adverse reaction; Pain is decreased me1 Medication: 19:16 VIS not applicable for this client. me1 Outcome: 21:23 Discharge ordered by . snnavi 22:02 Discharged to home ambulatory, me1 22:02 Condition: stable 22:02 Discharge instructions given to patient, Instructed on discharge instructions, follow up and referral plans. medication usage, Demonstrated understanding of instructions, follow-up care, medications, Prescriptions given X 2, 22:02 Patient left the ED. me1 Signatures: Josie Sierra, CABLE TOOL OPERATOR-C CABLE TOOL OPERATOR-Csnw Veronica Velasquez, RN VEE Darcie Mcgill RN RN ap3 Annabelle Montesinos RN RN eh3 Cassie Taylor, JAZ PAS ts1 Aliza Martinez RN RN me1
[2023-03-24] MEDS ORDERED: DICYCLOMINE HCL 10 MG CAP ONE (21:39)
== END 2023-03-24 22:02 | disposition home or self-care (01) ==
LOC: ER 18:28
DX: R10.84 Generalized abdominal pain (principal)
CPT/HCPCS: 85025; 81001; 36415; 81025; 84443; 83690; 80053; 96360; 99284; J7030